=== PATIENT | male | born 1965 | race Caucasian/White ===

== ENCOUNTER 2016-09-15 10:24 | Inpatient (IN) | payer MEDICARE, MEDICAID ==
[2016-09-15 10:57] LABS: Urine Bilirubin Negative (Negative); Urine Glucose Negative (Negative); Urine Nitrite Negative (Negative)
[2016-09-15 11:10] LABS: Hematocrit 44 % (42-52); Hemoglobin 15.4 g/dl (14.0-18.0); Mean Corpuscular HGB Conc 35 g/dl (31-36); Mean Corpuscular Hemoglobin 31 pg (27-31); Mean Corpuscular Volume 89 fL (80-94); Mean Platelet Volume 8 um3 (7.4-10.4); Red Blood Count 4.99 10^6/ul (4.0-5.4); Red Cell Distribution Width 14 % (10.5-15); White Blood Count 6.1 10^3/ul (3.5-10.8)
[2016-09-15 11:20] LABS: Benzodiazepine Urine Screen None Detected (None Detect)
[2016-09-15 11:25] LABS: ALT 18 U/L (7-52); AST 20 U/L (13-39); Albumin 4.4 g/dL (3.2-5.2); Alkaline Phosphatase 79 U/L (34-104); Anion Gap 9 mmol/L (2-11); BUN/Creatinine Ratio 6.9 (8-20); Blood Urea Nitrogen 7 mg/dL (6-24); CO2 Carbon Dioxide 22 mmol/L (22-32); Calcium 9.7 mg/dL (8.6-10.3); Chloride 109 mmol/L (101-111); EGFR African American 100.6 (>60); EGFR Non-African American 78.2 (>60); Globulin 2.7 g/dL (2-4); Glucose 112 mg/dL (70-100); Potassium 3.7 mmol/L (3.5-5.0); Sodium 140 mmol/L (133-145); Total Protein 7.1 g/dL (6.4-8.9)
[2016-09-15 11:47] LABS: Acetaminophen < 15 mcg/mL; Alcohol < 10 mg/dL (<10); Salicylate < 2.50 mg/dL (<30)
[2016-09-15 11:57] LABS: TSH (Thyroid Stimulating Horm) 2.05 mcIU/mL (0.34-5.60)
[2016-09-15] MEDS ORDERED: Nicotine Inhaler* 10 MG AMP INH ONE (12:58)
[2016-09-15] MEDS ORDERED: Acetaminophen TAB* 325 MG PO PRN (14:02)
[2016-09-15] MEDS ORDERED: Mouth Piece, Nicotine* 1 EACH CARTRIDGE ONE (16:33)
[2016-09-15] MEDS: Atorvastatin* 20 MG TAB PO SCH (20:11)
[2016-09-15] MEDS: clonazePAM TAB(*) 0.5 MG PO SCH (20:12)
[2016-09-15] MEDS: CloZAPine TAB* 100 MG TAB PO SCH (20:12)
[2016-09-15] MEDS: Nicotine Inhaler* 10 MG AMP INH PRN (20:14)
[2016-09-16] MEDS: Tamsulosin CAP* 0.4 MG PO SCH (08:53)
[2016-09-16] MEDS: CloZAPine TAB* 100 MG TAB PO SCH ×2 (08:53→20:01)
[2016-09-16] MEDS: Multivitamins/Minerals TAB PO SCH (08:53)
[2016-09-16] MEDS: Propranolol LA CAP* 120 MG PO SCH (08:53)
[2016-09-16] MEDS: Aspirin EC Low Dose* 81 MG TAB.EC PO SCH (08:53)
[2016-09-16] MEDS: Nicotine Inhaler* 10 MG AMP INH PRN ×2 (12:28→20:04)
--- NOTE | 2016-09-16 13:16 | PN ---
MHU: Group Therapy Note - Service Type Service Type: [id number] Group Psychotherapy - Cognitive Behavioral Group Therapy ( CBT):Patient attended CBT programming this morning and presented with flat affect that did not vary with discussion. Although responsive to direct prompts to respond to questions, patient did not engage in spontaneous conversation.
--- NOTE | 2016-09-16 14:23 | HP ---
H&P (Free Text) History and Physical: DATE OF ADMISSION: 09/15/16. DATE OF EVALUATION: 09/16/16. IDENTIFICATION: Mr. Bliss is known to the unit from about seven prior admissions here in the past 9 months. He is being readmitted under very similar circumstances to prior admissions, with report of paranoid ideation that his neighbors are plotting to harm him, this time with the new theme of witchcraft involved. Also has voices telling him to harm himself. He has been re-admitted 2-3 weeks following discharge from [facility] into an apartment at [facility]. HISTORY OF PRESENT ILLNESS: Information was gathered from interview of the patient and review of the electronic medical record. Escobar reports resumption of the paranoid ideation with voices telling him to kill himself. At [facility] yesterday, he reported SI to slit his wrists. He reports compliance with clozapine 100 mg po qAM and 250 mg po qHS. He nevertheless has had resumption of these auditory hallucinations which have plagued him for many months across multiple state hospitalizations. He feels he would be safer if he could live in a senior care. Haresh denies any history of mack. He does endorse some depressive symptoms, but this in the context of his ongoing paranoia and auditory hallucinations. He denies any history of OCD symptoms. He denies any visual hallucinations. He denies any history of trauma leading to PTSD symptoms. He is generally organized in his thought process aside from these overwhelming paranoid auditory hallucinations commanding him to harm himself. MENTAL STATUS EXAMINATION: Haresh is more disheveled and has a more distant feel to him on this admission compared with his last her in June. He has average hygiene, but is notably disheveled. He makes fair eye contact. His speech has regular rate, rhythm and volume. He shows some mild slowing of thought process. He is alert and oriented to person, place, time and situation. He reports his mood as "not so good." His affect is anxious. He is pacing the curry as he speaks with me. He reports command auditory hallucinations to harm himself. He denies any visual hallucinations. He reports suicidal ideation to cut himself, but denies any intent toward that plan at this point and feels safe here on the unit. He denies any homicidal ideation. He is not on this admission paranoid that his neighbors would steal his things, stating he has insurance to cover any losses now. PAST PSYCHIATRIC HISTORY: This is Haresh's 17th hospitalization on this BSU. It is his seventh since January of last year. He was hospitalized again prior to this admission at the [facility]. He has been continuing care at [facility]. He has reported that his first psychiatric admission was to a hospital in [place], [place] in 1995 after his only suicide attempt, which was by cutting his wrist. He reports a historical diagnosis of schizophrenia. He has in the past been on Saphris and Fluphenazine, also Zyprexa 20 mg in the morning and 10 mg at bedtime. Clozaril was started at the [facility] and he continues on that now. PAST MEDICAL HISTORY: Recovered through weight loss from non-insulin dependent diabetes about four years ago. Has high cholesterol and hypertension. Denies any history of TBI, seizures, syncopal episodes or cardiac problems. PAST SURGICAL HISTORY: Denies any surgical history. MEDICATIONS ON ADMISSION: 1. Clozapine 100 mg po qAM, 250 mg po qHS. 2. Propranolol extended release 120 mg daily. 3. Clonazepam 0.5 mg at bedtime as needed. 4. Tamsulosin 0.4 mg daily. 5. Atorvastatin 20 mg at bedtime. 6. Aspirin 81 mg po daily PHARMACY: [facility]. Medication list obtained by reconciliation with the pharmacy. FAMILY PSYCHIATRIC HISTORY: Cousin with bipolar affective disorder. Knows of no attempted or completed suicides amongst family members or acquaintances. 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 Denies any abuse of alcohol or illicit's since about 25 years ago. He reports that when a friend that he used to abuse substances with moved away, he stopped abusing substances. He denies any abuse of caffeine. Denies any abuse of IV drugs, arpm-tkx-lunbcul drugs, or prescription drugs. He has in the past used vaporized nicotine, but is not a smoker. SOCIAL HISTORY: Grew up in [place]. Did okay in school. Graduated from [employer] with accountancy classes. 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 Has one sister, very little contact with her as she is busy raising her family. Most recently had been living by himself in an apartment at [facility]. LEGAL HISTORY: Drug charges dismissed with ACD's in the past, no other legal history. REVIEW OF SYSTEMS: Denies any chest pain, shortness of breath, nausea, vomiting , constipation, diarrhea, pain, rash, unusual sensations. PHYSICAL EXAMINATION Physical examination was performed in the emergency department according to Haresh, but I find no record in the EMR of his physical exam done there. Patient was re-examined in presence of hospital account manager, Yeny. General: Well appearing, well nourished, in no distress. Ambulating without difficulty. Skin: Good turgor, no rash, unusual bruising or prominent lesions HEENT: Head: Normocephalic, atraumatic, no visible or palpable masses, depressions, or scaring. Eyes: Visual acuity intact, conjunctiva clear, sclera non-icteric, EOM intact, PERRL Ears: hearing intact. Mouth: Mucous membranes moist, no mucosal lesions. Neck: Supple, without lesions, bruits, or adenopathy, thyroid non-enlarged and non-tender Heart: Regular rate and rhythm, no murmur or gallop Lungs: Clear to auscultation and percussion Abdomen: Bowel sounds normal, no tenderness, organomegaly, masses, or hernia Rectal: deferred Extremities: No amputations or deformities, cyanosis, edema or varicosities, peripheral pulses intact Musculoskeletal: Normal gait and station. No misalignment, asymmetry, defects, or abnormal strength or tone in the head, neck, or extremities. Neurologic: CN 2-12 normal. Sensation to touch normal. DTRs normal in lower extremities. G/U: deferred LABORATORY DATA: CBC with differential essentially within normal limits. Comprehensive metabolic panel had an elevation of total bilirubin to 1.9 ( identical to that of his last admission), and glucose high to 112, otherwise all normal. Urinalysis and urine and serum toxicology screens all negative. ASSESSMENT AND PLAN: This is Haresh's seventh hospitalization on this unit since January of last year. He is again decompensated and admitted shortly after a stay at the [facility]. He has continued to have auditory hallucinations and paranoia with command auditory hallucinations telling him to kill himself. There has been little change of these symptoms across multiple medication trials. Decompensations have occurred invariably whenever he has been alone after discharge, even after arrangements have been made to put him into living situations where he would have roommates and presumably some more contacts to reduce the likelihood of these symptoms recurring. He will perhaps need to be transferred back to the [facility] hospital unless we can find some disposition that will help to reduce the likelihood of recurrence of this very persistent psychotic and suicidal symptomatology leading to multiple hospitalizations in the past nine months. We will continue Clozaril. He will be encouraged to make use of the therapeutic milieu and groups. We will be monitoring his mental status and safety. We will be gathering collateral from his outpatient providers and from [facility] staff. DIAGNOSIS: Schizophrenia. [id number]/[facility] #: [id number]
[2016-09-16] MEDS: clonazePAM TAB(*) 0.5 MG PO SCH (20:02)
[2016-09-16] MEDS: Atorvastatin* 20 MG TAB PO SCH (20:03)
[2016-09-17] MEDS: Aspirin EC Low Dose* 81 MG TAB.EC PO SCH (08:10)
[2016-09-17] MEDS: CloZAPine TAB* 100 MG TAB PO SCH ×2 (08:10→20:31)
[2016-09-17] MEDS: Propranolol LA CAP* 120 MG PO SCH (08:10)
[2016-09-17] MEDS: Multivitamins/Minerals TAB PO SCH (08:10)
[2016-09-17] MEDS: Tamsulosin CAP* 0.4 MG PO SCH (08:10)
[2016-09-17] MEDS: Nicotine Inhaler* 10 MG AMP INH PRN ×2 (08:12→14:05)
[2016-09-17] MEDS: Atorvastatin* 20 MG TAB PO SCH (20:31)
[2016-09-17] MEDS: clonazePAM TAB(*) 0.5 MG PO SCH (20:31)
[2016-09-18] MEDS: Aspirin EC Low Dose* 81 MG TAB.EC PO SCH (08:22)
[2016-09-18] MEDS: Tamsulosin CAP* 0.4 MG PO SCH (08:22)
[2016-09-18] MEDS: CloZAPine TAB* 100 MG TAB PO SCH ×2 (08:22→20:35)
[2016-09-18] MEDS: Multivitamins/Minerals TAB PO SCH (08:23)
[2016-09-18] MEDS: Propranolol LA CAP* 120 MG PO SCH (08:23)
[2016-09-18] MEDS: Nicotine Inhaler* 10 MG AMP INH PRN ×3 (08:24→18:02)
--- NOTE | 2016-09-18 15:07 | PN ---
Subjective - Subjective Subjective: Escobar is seclusive to his room, he c/o difficulty staying asleep and daytime tiredness. He describes mild improvement in AH "as long as he is able to relax and stay in the moment." He is receptive to support and advice to stay out of bed during the day. Objective - Appearance Appearance: Well Developed/Nourished Dysmorphic Features: No Hygiene: Mal-odorous Grooming: Disheveled - Behavior Psychomotor Activities: Normal Exhibits Abnormal Movement: Yes - Attitude and Relatedness Attitude and Relatedness: Cooperative Eye Contact: Good - Speech Quality: Unpressured Latencies: Normal Quantity: Terse - Mood Patient's Decription of Mood: "Anxious" - Affect Observed Affect: Unvariable Affect Consistent with: Dysphoria - Thought Process Patient's Thought Process: Impoverished Thought Content: Yes Paranoid Ideation, No Passive Wish, No Suicidal Planning, No Homicidal Ideation - Sensorium Experiencing Hallucinations: No, Sensorium is Clear - Level of Consciousness Level of Consciousness: Alert Orientation: Yes Intact - Impulse Control Impulse Control: Intact - Insight and Judgement Insight and Judgement: Impaired - Group Participation Particating in Group Activities: No - Medication Management Medication Management Adherence: Yes Assessment - Assessment Merits Inpatient Hospitalization: Consolidate Improvements, For Discharge Planning Inpatient DSM-IV Dx: Schizophrenia Clinical Impression: ongoing impairing psychotic symptoms. He needs continued admission for stabilization. Plan - Plan Treatment Plan: Name: AURORA ASH Birthdate: 1965 [id number] Continued Medication Management: Continue Outpt Medication Medications: Current Medications Acetaminophen (Tylenol Tab*) 650 mg PO Q4H PRN PRN Reason: PAIN or TEMP > 101 F Al Hydrox/Mg Hydrox/Simethicone (Maalox Plus*) 30 ml PO Q4H PRN PRN Reason: INDIGESTION Aspirin (Aspirin Ec Low Dose*) 81 mg PO DAILY [facility] Last Admin: 09/18/16 08:22 Dose: 81 mg Atorvastatin Calcium (Lipitor*) 20 mg PO BEDTIME [facility] Last Admin: 09/17/16 20:31 Dose: 20 mg Clonazepam (Klonopin Tab(*)) 0.5 mg PO BEDTIME [facility] Last Admin: 09/17/16 20:31 Dose: 0.5 mg Clozapine (Clozapine Tab*) 100 mg PO QAM [facility] Last Admin: 09/18/16 08:22 Dose: 100 mg Clozapine (Clozapine Tab*) 250 mg PO BEDTIME [facility] Last Admin: 09/17/16 20:31 Dose: 250 mg Multivitamins/Minerals (Theragran/Minerals Tab*) 1 tab PO DAILY [facility] Last Admin: 09/18/16 08:23 Dose: 1 tab Nicotine (Nicotine Inhaler*) 10 mg INH Q2H PRN PRN Reason: CRAVING Last Admin: 09/18/16 08:24 Dose: 10 mg Propranolol HCl (Inderal La Cap*) 120 mg PO DAILY [facility] Last Admin: 09/18/16 08:23 Dose: 120 mg Tamsulosin HCl (Flomax Cap*) 0.4 mg PO DAILY [facility] Last Admin: 09/18/16 08:22 Dose: 0.4 mg - Discharge Plan Discharge Plan: Consider Longer Term Tx Outpatient Program: TBD
[2016-09-18] MEDS: Atorvastatin* 20 MG TAB PO SCH (20:35)
[2016-09-18] MEDS: clonazePAM TAB(*) 0.5 MG PO SCH (20:36)
[2016-09-19] MEDS: Multivitamins/Minerals TAB PO SCH (08:52)
[2016-09-19] MEDS: Nicotine Inhaler* 10 MG AMP INH PRN ×3 (08:52→20:14)
[2016-09-19] MEDS: Tamsulosin CAP* 0.4 MG PO SCH (08:52)
[2016-09-19] MEDS: CloZAPine TAB* 100 MG TAB PO SCH ×2 (08:53→20:12)
[2016-09-19] MEDS: Aspirin EC Low Dose* 81 MG TAB.EC PO SCH (08:53)
[2016-09-19] MEDS: Propranolol LA CAP* 120 MG PO SCH (09:05)
--- NOTE | 2016-09-19 09:27 | PN ---
Subjective - Subjective Service Type: 52722 Hosp care 15 min low complexity Subjective: Escobar reports continued CAH to kill himself and is equivocal about any SI aside from CAH. Objective - Appearance Appearance: Healthy Appearing Dysmorphic Features: No Hygiene: Normal Grooming: Well Kept - Behavior Psychomotor Activities: Normal Exhibits Abnormal Movement: No - Attitude and Relatedness Attitude and Relatedness: Cooperative Eye Contact: Fair - Speech Quality: Unpressured Latencies: Normal Quantity: Appropriate - Mood Patient's Decription of Mood: "It's alright" - Affect Observed Affect: Depressed Affect Consistent with: Dysphoria - Thought Process Patient's Thought Process: Coherent, Goal Directed Thought Content: Yes Passive Wish, Yes Paranoid Ideation, No Suicidal Planning, No Homicidal Ideation - Sensorium Experiencing Hallucinations: Yes Type of Hallucinations: Visual: No, Auditory: Yes, Command: Yes - Level of Consciousness Level of Consciousness: Alert Orientation: Yes Intact, Yes Orientated to Time, Yes Orientated to Place, Yes Orientated to Person - Impulse Control Impulse Control: Intact - Insight and Judgement Insight and Judgement: Fair - Group Participation Particating in Group Activities: Yes - Medication Management Medication Management Adherence: Yes Assessment - Assessment Merits Inpatient Hospitalization: For Immediate Safety, For Stabilization, For Discharge Planning, Pending Safe DC Plan Inpatient DSM-IV Dx: Schizophrenia Clinical Impression: Escobar continues to have CAH to SI, which is what prompted readmission for his 7th admission in 9 months to this BSU. As before, he decompensated quickly after discharge from the [facility]. As before, we will be trying to help him to stabilize in the community by referral to prison. Plan - Plan Treatment Plan: Name: AURORA ASH Birthdate: 1965 [id number] Continue current meds. Monitor MS and safety. Encourage groups and milieu. [place] domiciling would be prison to break CAH by frequent interpersonal interactions. Medications: Current Medications Acetaminophen (Tylenol Tab*) 650 mg PO Q4H PRN PRN Reason: PAIN or TEMP > 101 F Al Hydrox/Mg Hydrox/Simethicone (Maalox Plus*) 30 ml PO Q4H PRN PRN Reason: INDIGESTION Aspirin (Aspirin Ec Low Dose*) 81 mg PO DAILY [facility] Last Admin: 09/19/16 08:53 Dose: 81 mg Atorvastatin Calcium (Lipitor*) 20 mg PO BEDTIME [facility] Last Admin: 09/18/16 20:35 Dose: 20 mg Clonazepam (Klonopin Tab(*)) 0.5 mg PO BEDTIME [facility] Last Admin: 09/18/16 20:36 Dose: 0.5 mg Clozapine (Clozapine Tab*) 100 mg PO QAM [facility] Last Admin: 09/19/16 08:53 Dose: 100 mg Clozapine (Clozapine Tab*) 250 mg PO BEDTIME [facility] Last Admin: 09/18/16 20:35 Dose: 250 mg Multivitamins/Minerals (Theragran/Minerals Tab*) 1 tab PO DAILY [facility] Last Admin: 09/19/16 08:52 Dose: 1 tab Nicotine (Nicotine Inhaler*) 10 mg INH Q2H PRN PRN Reason: CRAVING Last Admin: 09/19/16 08:52 Dose: 10 mg Propranolol HCl (Inderal La Cap*) 120 mg PO DAILY [facility] Last Admin: 09/19/16 09:05 Dose: 120 mg Tamsulosin HCl (Flomax Cap*) 0.4 mg PO DAILY [facility] Last Admin: 09/19/16 08:52 Dose: 0.4 mg - Discharge Plan Discharge Plan: Consider Longer Term Tx
--- NOTE | 2016-09-19 13:56 | PN ---
MHU: Group Therapy Note - Service Type Service Type: [id number] Group Psychotherapy - Cognitive Behavioral Group Therapy ( CBT):Patient attended CBT programming this morning and presented with flat affect that did not vary with discussion. Although responsive to direct prompts to respond to questions, patient did not engage in spontaneous conversation.
[2016-09-19] MEDS: Atorvastatin* 20 MG TAB PO SCH (20:12)
[2016-09-19] MEDS: clonazePAM TAB(*) 0.5 MG PO SCH (20:12)
[2016-09-20] MEDS: Aspirin EC Low Dose* 81 MG TAB.EC PO SCH (08:30)
[2016-09-20] MEDS: Propranolol LA CAP* 120 MG PO SCH (08:30)
[2016-09-20] MEDS: Tamsulosin CAP* 0.4 MG PO SCH (08:30)
[2016-09-20] MEDS: CloZAPine TAB* 100 MG TAB PO SCH ×2 (08:30→20:54)
[2016-09-20] MEDS: Multivitamins/Minerals TAB PO SCH (08:30)
[2016-09-20] MEDS: Nicotine Inhaler* 10 MG AMP INH PRN ×3 (08:32→20:56)
--- NOTE | 2016-09-20 12:43 | PN ---
Subjective - Subjective Service Type: [id number] Hosp care 15 min low complexity Subjective: Escobar reports being in a good mood despite continued CAH to harm himself. He reports continued PI that others can hear his thoughts. Objective - Appearance Appearance: Healthy Appearing Dysmorphic Features: No Hygiene: Normal Grooming: Disheveled - Behavior Psychomotor Activities: Normal Exhibits Abnormal Movement: No - Attitude and Relatedness Attitude and Relatedness: Cooperative Eye Contact: Good - Speech Quality: Unpressured Latencies: Normal Quantity: Appropriate - Mood Patient's Decription of Mood: "Good" - Affect Observed Affect: Constricted - Thought Process Patient's Thought Process: Coherent, Goal Directed Thought Content: Yes Paranoid Ideation, No Passive Wish, No Suicidal Planning, No Homicidal Ideation - Sensorium Experiencing Hallucinations: Yes Type of Hallucinations: Visual: No, Auditory: Yes, Command: Yes - Level of Consciousness Level of Consciousness: Alert Orientation: Yes Intact, Yes Orientated to Time, Yes Orientated to Place, Yes Orientated to Person - Impulse Control Impulse Control: Intact - Insight and Judgement Insight and Judgement: Fair - Group Participation Particating in Group Activities: Yes - Medication Management Medication Management Adherence: Yes Assessment - Assessment Merits Inpatient Hospitalization: For Immediate Safety, For Stabilization, For Discharge Planning, Pending Safe DC Plan Inpatient DSM-IV Dx: Schizophrenia Clinical Impression: Escobar continues to have CAH to SI, which is what prompted readmission for his 7th admission in 9 months to this BSU. As before, he decompensated quickly after discharge from the [facility]. As before, we will be trying to help him to stabilize in the community by referral to residential. 09.20.16 Escobar remains psychotic with CAH to harm himself and PI that his mind is being read. He is otherwise pleasant and collaborative beneath an anxious demeanor. Plan - Plan Treatment Plan: Name: AURORA ASH Birthdate: 1965 [id number] Continue current meds. Check cloz/norcloz levels. Monitor MS and safety. Encourage groups and milieu. [place] domiciling would be residential to break CAH by frequent interpersonal interactions. Continued Medication Management: Continue Outpt Medication Medications: Current Medications Acetaminophen (Tylenol Tab*) 650 mg PO Q4H PRN PRN Reason: PAIN or TEMP > 101 F Al Hydrox/Mg Hydrox/Simethicone (Maalox Plus*) 30 ml PO Q4H PRN PRN Reason: INDIGESTION Aspirin (Aspirin Ec Low Dose*) 81 mg PO DAILY [facility] Last Admin: 09/20/16 08:30 Dose: 81 mg Atorvastatin Calcium (Lipitor*) 20 mg PO BEDTIME [facility] Last Admin: 09/19/16 20:12 Dose: 20 mg Clonazepam (Klonopin Tab(*)) 0.5 mg PO BEDTIME [facility] Last Admin: 09/19/16 20:12 Dose: 0.5 mg Clozapine (Clozapine Tab*) 100 mg PO QAM [facility] Last Admin: 09/20/16 08:30 Dose: 100 mg Clozapine (Clozapine Tab*) 250 mg PO BEDTIME [facility] Last Admin: 09/19/16 20:12 Dose: 250 mg Multivitamins/Minerals (Theragran/Minerals Tab*) 1 tab PO DAILY [facility] Last Admin: 09/20/16 08:30 Dose: 1 tab Nicotine (Nicotine Inhaler*) 10 mg INH Q2H PRN PRN Reason: CRAVING Last Admin: 09/20/16 08:32 Dose: 10 mg Propranolol HCl (Inderal La Cap*) 120 mg PO DAILY [facility] Last Admin: 09/20/16 08:30 Dose: 120 mg Tamsulosin HCl (Flomax Cap*) 0.4 mg PO DAILY [facility] Last Admin: 09/20/16 08:30 Dose: 0.4 mg - Discharge Plan Discharge Plan: Outpatient Follow Up Outpatient Program: Iasiah Pratt [facility]
[2016-09-20] MEDS: clonazePAM TAB(*) 0.5 MG PO SCH (20:54)
[2016-09-20] MEDS: Atorvastatin* 20 MG TAB PO SCH (20:55)
[2016-09-21] MEDS: Propranolol LA CAP* 120 MG PO SCH (08:32)
[2016-09-21] MEDS: Multivitamins/Minerals TAB PO SCH (08:33)
[2016-09-21] MEDS: Aspirin EC Low Dose* 81 MG TAB.EC PO SCH (08:33)
[2016-09-21] MEDS: Tamsulosin CAP* 0.4 MG PO SCH (08:33)
[2016-09-21] MEDS: CloZAPine TAB* 100 MG TAB PO SCH ×2 (08:33→20:14)
[2016-09-21] MEDS: Nicotine Inhaler* 10 MG AMP INH PRN ×4 (08:35→20:14)
--- NOTE | 2016-09-21 08:50 | PN ---
Subjective - Subjective Service Type: 14619 Hosp care 15 min low complexity Subjective: Escobar reports continued CAH to harm himself, but no SI independent of CAH since yesterday. He still feels his safest discharge plan would be to skilled nursing domiciling to curb his paranoia and CAH with frequent interactions with others. Objective - Appearance Appearance: Well Developed/Nourished Dysmorphic Features: No Hygiene: Normal Grooming: Disheveled - Behavior Psychomotor Activities: Normal Exhibits Abnormal Movement: No - Attitude and Relatedness Attitude and Relatedness: Well Related Eye Contact: Good - Speech Quality: Unpressured Latencies: Normal Quantity: Terse - Mood Patient's Decription of Mood: "Fine" - Affect Observed Affect: Fair Affect Consistent with: Euthymia - Thought Process Patient's Thought Process: Coherent, Goal Directed Thought Content: Yes Paranoid Ideation, No Passive Wish, No Suicidal Planning, No Homicidal Ideation - Sensorium Experiencing Hallucinations: No, Sensorium is Clear Type of Hallucinations: Visual: No, Auditory: Yes, Command: Yes - Level of Consciousness Level of Consciousness: Alert Orientation: Yes Intact, Yes Orientated to Time, Yes Orientated to Place, Yes Orientated to Person - Impulse Control Impulse Control: Intact - Insight and Judgement Insight and Judgement: Poor - Group Participation Particating in Group Activities: Yes - Medication Management Medication Management Adherence: Yes Assessment - Assessment Merits Inpatient Hospitalization: For Immediate Safety, For Stabilization, For Discharge Planning, Pending Safe DC Plan Inpatient DSM-IV Dx: Schizophrenia Clinical Impression: Escobar continues to have CAH to SI, which is what prompted readmission for his 7th admission in 9 months to this BSU. As before, he decompensated quickly after discharge from the [facility]. As before, we will be trying to help him to stabilize in the community by referral to skilled nursing. 1..17 Escobar remains psychotic with CAH to harm himself and PI that his mind is being read. He is otherwise pleasant and collaborative beneath an anxious demeanor. 09.21.17 CAH to SI persists, so increase Clozaril dose against this. Still looking toward group living situation. Plan - Plan Treatment Plan: Name: AURORA ASH Birthdate: 1965 [id number] Continue current meds with 50 mg increase of Clozaril to 400 mg total daily dose as 100 am, 300 hs. Monitor MS and safety. Encourage groups and milieu. [place] domiciling would be skilled nursing to break CAH by frequent interpersonal interactions. Continued Medication Management: Continue Outpt Medication Medications: Current Medications Acetaminophen (Tylenol Tab*) 650 mg PO Q4H PRN PRN Reason: PAIN or TEMP > 101 F Al Hydrox/Mg Hydrox/Simethicone (Maalox Plus*) 30 ml PO Q4H PRN PRN Reason: INDIGESTION Aspirin (Aspirin Ec Low Dose*) 81 mg PO DAILY [facility] Last Admin: 09/21/16 08:33 Dose: 81 mg Atorvastatin Calcium (Lipitor*) 20 mg PO BEDTIME [facility] Last Admin: 09/20/16 20:55 Dose: 20 mg Clonazepam (Klonopin Tab(*)) 0.5 mg PO BEDTIME [facility] Last Admin: 09/20/16 20:54 Dose: 0.5 mg Clozapine (Clozapine Tab*) 100 mg PO QAM [facility] Last Admin: 09/21/16 08:33 Dose: 100 mg Clozapine (Clozapine Tab*) 250 mg PO BEDTIME [facility] Last Admin: 09/20/16 20:54 Dose: 250 mg Multivitamins/Minerals (Theragran/Minerals Tab*) 1 tab PO DAILY [facility] Last Admin: 09/21/16 08:33 Dose: 1 tab Nicotine (Nicotine Inhaler*) 10 mg INH Q2H PRN PRN Reason: CRAVING Last Admin: 09/21/16 08:35 Dose: 10 mg Propranolol HCl (Inderal La Cap*) 120 mg PO DAILY [facility] Last Admin: 09/21/16 08:32 Dose: 120 mg Tamsulosin HCl (Flomax Cap*) 0.4 mg PO DAILY [facility] Last Admin: 09/21/16 08:33 Dose: 0.4 mg - Discharge Plan Discharge Plan: Outpatient Follow Up Outpatient Program: Isaiah Pratt [facility]
[2016-09-21] MEDS ORDERED: Mouth Piece, Nicotine* 1 EACH CARTRIDGE ONE (09:41)
--- NOTE | 2016-09-21 11:33 | PN ---
MHU: Group Therapy Note - Service Type Service Type: [id number] Group Psychotherapy - Cognitive Behavioral Group Therapy ( CBT):Patient attended CBT programming this morning and presented with flat affect that did not vary with discussion. Although responsive to direct prompts to respond to questions, patient did not engage in spontaneous conversation.
[2016-09-21] MEDS: clonazePAM TAB(*) 0.5 MG PO SCH (20:14)
[2016-09-21] MEDS: Atorvastatin* 20 MG TAB PO SCH (20:14)
[2016-09-22] MEDS: Nicotine Inhaler* 10 MG AMP INH PRN ×3 (08:35→20:31)
[2016-09-22] MEDS: CloZAPine TAB* 100 MG TAB PO SCH ×2 (08:35→20:29)
[2016-09-22] MEDS: Aspirin EC Low Dose* 81 MG TAB.EC PO SCH (08:35)
[2016-09-22] MEDS: Multivitamins/Minerals TAB PO SCH (08:35)
[2016-09-22] MEDS: Propranolol LA CAP* 120 MG PO SCH (08:36)
[2016-09-22] MEDS: Tamsulosin CAP* 0.4 MG PO SCH (08:36)
--- NOTE | 2016-09-22 12:35 | PN ---
Subjective - Subjective Service Type: 81118 Hosp care 15 min low complexity Subjective: Escobar reports no change in psychiatric symptoms, and has no complaint of side effect from dose of Clozaril increased yesterday from 350 mg TDD to 400 mg TDD. Objective - Appearance Appearance: Well Developed/Nourished Dysmorphic Features: No Hygiene: Normal Grooming: Disheveled - Behavior Psychomotor Activities: Abnormal-Decreased - found in bed mid-day Exhibits Abnormal Movement: No - Attitude and Relatedness Attitude and Relatedness: Cooperative Eye Contact: Good - Speech Quality: Unpressured Latencies: Normal Quantity: Terse - Mood Patient's Decription of Mood: "Not so good" - Affect Observed Affect: Depressed Affect Consistent with: Dysphoria - Thought Process Patient's Thought Process: Coherent, Goal Directed Thought Content: Yes Paranoid Ideation, No Passive Wish, No Suicidal Planning, No Homicidal Ideation - Sensorium Experiencing Hallucinations: Yes Type of Hallucinations: Visual: No, Auditory: Yes, Command: Yes - Level of Consciousness Level of Consciousness: Alert Orientation: Yes Intact, Yes Orientated to Time, Yes Orientated to Place, Yes Orientated to Person - Impulse Control Impulse Control: Intact - Insight and Judgement Insight and Judgement: Poor - Group Participation Particating in Group Activities: Yes - Medication Management Medication Management Adherence: Yes Assessment - Assessment Merits Inpatient Hospitalization: For Immediate Safety, For Stabilization, For Discharge Planning, Pending Safe DC Plan Inpatient DSM-IV Dx: Schizophrenia Clinical Impression: Escobar continues to have CAH to SI, which is what prompted readmission for his 7th admission in 9 months to this BSU. As before, he decompensated quickly after discharge from the [facility]. As before, we will be trying to help him to stabilize in the community by referral to care home. 1.24.17 Escobar remains psychotic with CAH to harm himself and PI that his mind is being read. He is otherwise pleasant and collaborative beneath an anxious demeanor. 1.25.17 CAH to SI persists, so increase Clozaril dose against this. Still looking toward group living situation. 1.26.17 Tolerating increased Clozaril dose, no benefit yet. Being considered by [place] for community residence on condition of assessment for enrollment in ACT Plan - Plan Treatment Plan: Name: AURORA ASH Birthdate: 1965 [id number] Continue current meds at Clozaril to 400 mg total daily dose as 100 am, 300 hs. Monitor MS and safety. Encourage groups and milieu. [place] domiciling would be care home to break CAH by frequent interpersonal interactions. Continued Medication Management: Continue Outpt Medication Medications: Current Medications Acetaminophen (Tylenol Tab*) 650 mg PO Q4H PRN PRN Reason: PAIN or TEMP > 101 F Al Hydrox/Mg Hydrox/Simethicone (Maalox Plus*) 30 ml PO Q4H PRN PRN Reason: INDIGESTION Aspirin (Aspirin Ec Low Dose*) 81 mg PO DAILY [facility] Last Admin: 09/22/16 08:35 Dose: 81 mg Atorvastatin Calcium (Lipitor*) 20 mg PO BEDTIME AN Last Admin: 09/21/16 20:14 Dose: 20 mg Clonazepam (Klonopin Tab(*)) 0.5 mg PO BEDTIME AN Last Admin: 09/21/16 20:14 Dose: 0.5 mg Clozapine (Clozapine Tab*) 100 mg PO QAM [facility] Last Admin: 09/22/16 08:35 Dose: 100 mg Clozapine (Clozapine Tab*) 300 mg PO BEDTIME AN Last Admin: 09/21/16 20:14 Dose: 300 mg Multivitamins/Minerals (Theragran/Minerals Tab*) 1 tab PO DAILY [facility] Last Admin: 09/22/16 08:35 Dose: 1 tab Nicotine (Nicotine Inhaler*) 10 mg INH Q2H PRN PRN Reason: CRAVING Last Admin: 09/22/16 08:35 Dose: 10 mg Propranolol HCl (Inderal La Cap*) 120 mg PO DAILY [facility] Last Admin: 09/22/16 08:36 Dose: 120 mg Tamsulosin HCl (Flomax Cap*) 0.4 mg PO DAILY AN Last Admin: 09/22/16 08:36 Dose: 0.4 mg - Discharge Plan Discharge Plan: Outpatient Follow Up Outpatient Program: [facility]
[2016-09-22] MEDS: clonazePAM TAB(*) 0.5 MG PO SCH (20:29)
[2016-09-22] MEDS: Atorvastatin* 20 MG TAB PO SCH (20:29)
[2016-09-23 06:46] LABS: Clozapine 780 ng/mL (>350); Norclozapine 395 ng/mL
[2016-09-23] MEDS: Multivitamins/Minerals TAB PO SCH (09:00)
[2016-09-23] MEDS: Propranolol LA CAP* 120 MG PO SCH (09:00)
[2016-09-23] MEDS: CloZAPine TAB* 100 MG TAB PO SCH ×2 (09:00→20:25)
[2016-09-23] MEDS: Aspirin EC Low Dose* 81 MG TAB.EC PO SCH (09:00)
[2016-09-23] MEDS: Tamsulosin CAP* 0.4 MG PO SCH (09:01)
[2016-09-23] MEDS: Nicotine Inhaler* 10 MG AMP INH PRN ×4 (09:01→20:27)
--- NOTE | 2016-09-23 11:31 | PN ---
Subjective - Subjective Service Type: 69118 Hosp care 25 min moderate complexity Subjective: Escobar reports things are status quo, with no change in CAH to SI, and still no SI independent of CAH. Still having paranoia that his thoughts are being read, but no concerns re theft of his things on this admission. He has no physical complaints, no complaint of side effects of meds. Objective - Appearance Appearance: Well Developed/Nourished Dysmorphic Features: No Hygiene: Normal Grooming: Disheveled - Behavior Psychomotor Activities: Normal Exhibits Abnormal Movement: No - Attitude and Relatedness Attitude and Relatedness: Cooperative Eye Contact: Good - Speech Quality: Unpressured Latencies: Normal Quantity: Appropriate - Mood Patient's Decription of Mood: "Alright" - Affect Observed Affect: Depressed Affect Consistent with: Dysphoria - mild - Thought Process Patient's Thought Process: Coherent, Goal Directed, Impoverished - mildly Thought Content: Yes Paranoid Ideation, No Passive Wish, No Suicidal Planning, No Homicidal Ideation - Sensorium Experiencing Hallucinations: No, Sensorium is Clear Type of Hallucinations: Visual: No, Auditory: Yes, Command: Yes - Level of Consciousness Level of Consciousness: Alert Orientation: Yes Intact, Yes Orientated to Time, Yes Orientated to Place, Yes Orientated to Person - Impulse Control Impulse Control: Intact - Insight and Judgement Insight and Judgement: Fair - Group Participation Particating in Group Activities: Yes - Medication Management Medication Management Adherence: Yes Assessment - Assessment Merits Inpatient Hospitalization: For Immediate Safety, For Stabilization, For Discharge Planning, Pending Safe DC Plan Inpatient DSM-IV Dx: Schizophrenia Clinical Impression: Escobar continues to have CAH to SI, which is what prompted readmission for his 7th admission in 9 months to this [facility]. As before, he decompensated quickly after discharge from the [facility]. As before, we will be trying to help him to stabilize in the community by referral to correction. 1.17 Escobar remains psychotic with CAH to harm himself and PI that his mind is being read. He is otherwise pleasant and collaborative beneath an anxious demeanor. 1.17 CAH to SI persists, so increase Clozaril dose against this. Still looking toward group living situation. 1.17 Tolerating increased Clozaril dose, no benefit yet. Being considered by [place] for community residence on condition of assessment for enrollment in ACT 1.27.17 Clozaril level returned from trough draw morning of 1.25.17, before dose increase, gives serum levels of clozapine 780, norclozapine 395, well past the threshold giving expectation of efficacy, so indicating less likelihood of improved efficacy with increased dose. Still arranging for discharge into group living situation, which in the past has mitigated symptoms of CAH to SI and paranoia through frequent social contact. Med, meal and group compliant, with pleasant engagement with staff and peers. Plan - Plan Treatment Plan: Name: AURORA ASH Birthdate: 1965 [id number] Continue current meds at Clozaril to 400 mg total daily dose as 100 am, 300 hs. Monitor MS and safety. Encourage groups and milieu. [place] domiciling would be correction to break CAH by frequent interpersonal interactions, working toward this for next week. Continued Medication Management: Continue Outpt Medication Medications: Current Medications Acetaminophen (Tylenol Tab*) 650 mg PO Q4H PRN PRN Reason: PAIN or TEMP > 101 F Al Hydrox/Mg Hydrox/Simethicone (Maalox Plus*) 30 ml PO Q4H PRN PRN Reason: INDIGESTION Aspirin (Aspirin Ec Low Dose*) 81 mg PO DAILY [facility] Last Admin: 09/23/16 09:00 Dose: 81 mg Atorvastatin Calcium (Lipitor*) 20 mg PO BEDTIME AN Last Admin: 09/22/16 20:29 Dose: 20 mg Clonazepam (Klonopin Tab(*)) 0.5 mg PO BEDTIME AN Last Admin: 09/22/16 20:29 Dose: 0.5 mg Clozapine (Clozapine Tab*) 100 mg PO QAM AN Last Admin: 09/23/16 09:00 Dose: 100 mg Clozapine (Clozapine Tab*) 300 mg PO BEDTIME AN Last Admin: 09/22/16 20:29 Dose: 300 mg Multivitamins/Minerals (Theragran/Minerals Tab*) 1 tab PO DAILY [facility] Last Admin: 09/23/16 09:00 Dose: 1 tab Nicotine (Nicotine Inhaler*) 10 mg INH Q2H PRN PRN Reason: CRAVING Last Admin: 09/23/16 09:01 Dose: 10 mg Propranolol HCl (Inderal La Cap*) 120 mg PO DAILY [facility] Last Admin: 09/23/16 09:00 Dose: 120 mg Tamsulosin HCl (Flomax Cap*) 0.4 mg PO DAILY AN Last Admin: 09/23/16 09:01 Dose: 0.4 mg - Discharge Plan Discharge Plan: Outpatient Follow Up Outpatient Program: [facility]
[2016-09-23 12:34] LABS: Hematocrit 45 % (42-52); Hemoglobin 15.2 g/dl (14.0-18.0); Mean Corpuscular HGB Conc 34 g/dl (31-36); Mean Corpuscular Hemoglobin 30 pg (27-31); Mean Corpuscular Volume 90 fL (80-94); Mean Platelet Volume 9 um3 (7.4-10.4); Red Blood Count 4.99 10^6/ul (4.0-5.4); Red Cell Distribution Width 14 % (10.5-15); White Blood Count 7.9 10^3/ul (3.5-10.8)
[2016-09-23] MEDS: clonazePAM TAB(*) 0.5 MG PO SCH (20:24)
[2016-09-23] MEDS: Atorvastatin* 20 MG TAB PO SCH (20:24)
[2016-09-24] MEDS: Tamsulosin CAP* 0.4 MG PO SCH (08:17)
[2016-09-24] MEDS: Propranolol LA CAP* 120 MG PO SCH (08:17)
[2016-09-24] MEDS: Multivitamins/Minerals TAB PO SCH (08:17)
[2016-09-24] MEDS: Aspirin EC Low Dose* 81 MG TAB.EC PO SCH (08:17)
[2016-09-24] MEDS: CloZAPine TAB* 100 MG TAB PO SCH ×2 (08:18→19:57)
[2016-09-24] MEDS: Nicotine Inhaler* 10 MG AMP INH PRN ×3 (08:19→19:59)
[2016-09-24] MEDS: clonazePAM TAB(*) 0.5 MG PO SCH (19:57)
[2016-09-24] MEDS: Atorvastatin* 20 MG TAB PO SCH (19:58)
[2016-09-25] MEDS: CloZAPine TAB* 100 MG TAB PO SCH ×2 (08:34→19:48)
[2016-09-25] MEDS: Aspirin EC Low Dose* 81 MG TAB.EC PO SCH (08:34)
[2016-09-25] MEDS: Tamsulosin CAP* 0.4 MG PO SCH (08:34)
[2016-09-25] MEDS: Propranolol LA CAP* 120 MG PO SCH (08:34)
[2016-09-25] MEDS: Multivitamins/Minerals TAB PO SCH (08:34)
[2016-09-25] MEDS: Nicotine Inhaler* 10 MG AMP INH PRN ×5 (08:35→20:40)
--- NOTE | 2016-09-25 12:18 | ED ---
Psychiatric Complaint - HPI Summary HPI Summary: Patient presents with concerns that he is not safe in his home due to the college students who live in the apartment above him. He says they have been coming to his door, knocking and then leaving, and then also chanting upstairs that he should hurt himself. He also reports hallucinating about voices that tell him to hurt himself. He denies linus SI or HI. - History Of Current Complaint Chief Complaint: EDMentalHealth Time Seen by Provider: 09/15/16 10:33 Hx Obtained From: Patient Onset/Duration: Gradual Onset Timing: Constant Severity Initially: Severe Severity Currently: Severe Character: Fearful, Anxious Aggravating Factor(s): Nothing Alleviating Factor(s): Nothing Associated Signs And Symptoms: Positive: Hallucinating, Paranoid Behavior Related History: Positive For: Prior Psychiatric Issues - Allergies/Home Medications Allergies/Adverse Reactions: Allergies Allergy/AdvReac Type Severity Reaction Status Date / Time Ziprasidone [From [facility]] Allergy Itching Verified 09/15/16 11:17 Home Medications: Home Medications Atorvastatin* [Lipitor 20 MG*] 20 mg PO BEDTIME 09/15/16 [History Confirmed ] CloZAPine TAB* 100 mg PO QAM 09/15/16 [History Confirmed 09/15/16] CloZAPine TAB* 250 mg PO BEDTIME 09/15/16 [History Confirmed 09/15/16] Multivitamins/Minerals TAB* [Theragran/minerals TAB*] 1 tab PO DAILY 09/15/16 [ History Confirmed 09/15/16] Tamsulosin CAP* [Flomax CAP*] 0.4 mg PO DAILY 09/15/16 [History Confirmed ] PMH/Surg Hx/FS Hx/Imm Hx Cardiovascular History: Reports: Hx Hypercholesterolemia, Hx Hypertension Neurological History: Reports: Other Neuro Impairments/Disorders - RLS per patient Psychiatric History: Reports: Hx Anxiety, Hx Depression, Hx Inpatient Treatment , Hx Community Mental Health Tx, Hx Schizophrenia, Other Psychiatric Issues/ Disorders - paranoia Denies: Hx Eating Disorder, Hx of Violent Episodes Against Others Infectious Disease History: No Infectious Disease History: Denies: Traveled Outside the [place] in Last 30 Days - Family History Known Family History: Positive: Other - cousin with bipolar d/o - Social History Occupation: Unemployed Lives: Alone Alcohol Use: None Hx Substance Use: No Substance Use Type: Reports: None Hx Tobacco Use: Yes Smoking Status (MU): Former Smoker Type: Cigarettes Have You Smoked in the Last Year: Yes - reports no tobacco from cigarrettes in last six months Review of Systems Positive: Anxious, Other - paranoid All Other Systems Reviewed And Are Negative: Yes Physical Exam Triage Information Reviewed: Yes Vital Signs On Initial Exam: Initial Vitals Temp Pulse Resp BP Pulse Ox 98.2 F 78 16 137/100 97 09/15/16 10:43 09/15/16 10:43 09/15/16 10:43 09/15/16 10:43 09/15/16 10:43 Vital Signs Reviewed: Yes Appearance: Positive: Well-Appearing, No Pain Distress, Well-Nourished Skin: Positive: Warm, Skin Color Reflects Adequate Perfusion, Dry, Soft Head/Face: Positive: Normal Head/Face Inspection Eyes: Positive: EOMI, YARON, Conjunctiva Clear ENT: Positive: Hearing grossly normal Respiratory/Lung Sounds: Positive: Clear to Auscultation, Breath Sounds Present Cardiovascular: Positive: RRR Abdomen Description: Positive: Nontender, Soft Bowel Sounds: Positive: Present Musculoskeletal: Negative: Edema Left, Edema Right Neurological: Positive: Sensory/Motor Intact, NV Bundle Intact Distally Psychiatric: Positive: Anxious AVPU Assessment: Alert Diagnostics - Vital Signs Vital Signs Temp Pulse Resp BP Pulse Ox 09/15/16 14:47 97.9 F 80 16 129/82 98 09/15/16 14:02 98.3 F 81 16 134/81 09/15/16 10:43 98.2 F 78 16 137/100 97 - Laboratory Lab Results: Lab Results 09/15/16 09/15/16 09/15/16 Range/Units 10:45 10:45 11:03 WBC 6.1 (3.5-10.8) 10^3/ul RBC 4.99 (4.0-5.4) 10^6/ul Hgb 15.4 (14.0-18.0) g/dl Hct 44 (42-52) % MCV 89 (80-94) fL MCH 31 (27-31) pg MCHC 35 (31-36) g/dl RDW 14 (10.5-15) % Plt Count 205 (150-450) 10^3/ul MPV 8 (7.4-10.4) um3 Neut % (Auto) 70.1 (38-83) % Lymph % (Auto) 18.8 L (25-47) % [place] % (Auto) 6.3 (1-9) % Eos % (Auto) 3.8 (0-6) % Baso % (Auto) 1.0 (0-2) % Absolute Neuts (auto) 4.3 (1.5-7.7) 10^3/ul Absolute Lymphs (auto) 1.2 (1.0-4.8) 10^3/ul Absolute Monos (auto) 0.4 (0-0.8) 10^3/ul Absolute Eos (auto) 0.2 (0-0.6) 10^3/ul Absolute Basos (auto) 0.1 (0-0.2) 10^3/ul Absolute Nucleated RBC 0 10^3/ul Nucleated RBC % 0 Sodium (133-145) mmol/L Potassium (3.5-5.0) mmol/L Chloride (101-111) mmol/L Carbon Dioxide (22-32) mmol/L Anion Gap (2-11) mmol/L BUN (6-24) mg/dL Creatinine (0.67-1.17) mg/dL Est GFR ( Amer) (>60) Est GFR (Non-Af Amer) (>60) BUN/Creatinine Ratio (8-20) Glucose (70-100) mg/dL Calcium (8.6-10.3) mg/dL Total Bilirubin (0.2-1.0) mg/dL AST (13-39) U/L ALT (7-52) U/L Alkaline Phosphatase (34-104) U/L Total Protein (6.4-8.9) g/dL Albumin (3.2-5.2) g/dL Globulin (2-4) g/dL Albumin/Globulin Ratio (1-3) TSH (0.34-5.60) mcIU/mL Urine Color Yellow Urine Appearance Clear Urine pH 7.0 (5-9) Ur Specific [place] 1.012 (1.010-1.030) Urine Protein Negative (Negative) Urine Ketones Negative (Negative) Urine Blood Negative (Negative) Urine Nitrate Negative (Negative) Urine Bilirubin Negative (Negative) Urine Urobilinogen Negative (Negative) Ur Leukocyte Esterase Negative (Negative) Urine Glucose Negative (Negative) Salicylates (<30) mg/dL Urine Opiates Screen None detected (None Detect) Acetaminophen mcg/mL Ur Barbiturates Screen None detected (None Detect) Ur Phencyclidine Scrn None detected (None Detect) Ur Amphetamines Screen None detected (None Detect) U Benzodiazepines Scrn None detected (None Detect) Urine Cocaine Screen None detected (None Detect) U Cannabinoids Screen None detected (None Detect) Serum Alcohol (<10) mg/dL 09/15/16 Range/Units 11:03 WBC (3.5-10.8) 10^3/ul RBC (4.0-5.4) 10^6/ul Hgb (14.0-18.0) g/dl Hct (42-52) % MCV (80-94) fL MCH (27-31) pg MCHC (31-36) g/dl RDW (10.5-15) % Plt Count (150-450) 10^3/ul MPV (7.4-10.4) um3 Neut % (Auto) (38-83) % Lymph % (Auto) (25-47) % [place] % (Auto) (1-9) % Eos % (Auto) (0-6) % Baso % (Auto) (0-2) % Absolute Neuts (auto) (1.5-7.7) 10^3/ul Absolute Lymphs (auto) (1.0-4.8) 10^3/ul Absolute Monos (auto) (0-0.8) 10^3/ul Absolute Eos (auto) (0-0.6) 10^3/ul Absolute Basos (auto) (0-0.2) 10^3/ul Absolute Nucleated RBC 10^3/ul Nucleated RBC % Sodium 140 (133-145) mmol/L Potassium 3.7 (3.5-5.0) mmol/L Chloride 109 (101-111) mmol/L Carbon Dioxide 22 (22-32) mmol/L Anion Gap 9 (2-11) mmol/L BUN 7 (6-24) mg/dL Creatinine 1.01 (0.67-1.17) mg/dL Est GFR ( Amer) 100.6 (>60) Est GFR (Non-Af Amer) 78.2 (>60) BUN/Creatinine Ratio 6.9 L (8-20) Glucose 112 H (70-100) mg/dL Calcium 9.7 (8.6-10.3) mg/dL Total Bilirubin 1.90 H (0.2-1.0) mg/dL AST 20 (13-39) U/L ALT 18 (7-52) U/L Alkaline Phosphatase 79 (34-104) U/L Total Protein 7.1 (6.4-8.9) g/dL Albumin 4.4 (3.2-5.2) g/dL Globulin 2.7 (2-4) g/dL Albumin/Globulin Ratio 1.6 (1-3) TSH 2.05 (0.34-5.60) mcIU/mL Urine Color Urine Appearance Urine pH (5-9) Ur Specific [place] (1.010-1.030) Urine Protein (Negative) Urine Ketones (Negative) Urine Blood (Negative) Urine Nitrate (Negative) Urine Bilirubin (Negative) Urine Urobilinogen (Negative) Ur Leukocyte Esterase (Negative) Urine Glucose (Negative) Salicylates < 2.50 (<30) mg/dL Urine Opiates Screen (None Detect) Acetaminophen < 15 mcg/mL Ur Barbiturates Screen (None Detect) Ur Phencyclidine Scrn (None Detect) Ur Amphetamines Screen (None Detect) U Benzodiazepines Scrn (None Detect) Urine Cocaine Screen (None Detect) U Cannabinoids Screen (None Detect) Serum Alcohol < 10 (<10) mg/dL Result Diagrams: 09/23/16 11:59 09/15/16 11:03 Lab Statement: Any lab studies that have been ordered have been reviewed, and results considered in the medical decision making process. Course/Dx - Differential Dx/Clinical Impression Differential Diagnosis/HQI/PQRI: Positive: Acute Psychosis, Anxiety, Depression , Schizophrenia Provider Diagnosis: Persistent mood [affective] disorder, unspecified - Physician Notifications Patient Is Medically Stable For: Psych Evaluation Discharge - Discharge Plan Condition: Stable Disposition: ADMITTED TO [facility]
[2016-09-25] MEDS: Atorvastatin* 20 MG TAB PO SCH (19:47)
[2016-09-25] MEDS: Al Hydrox/Mg Hydrox/Simet LIQ* 30 ML UDC PO PRN (19:47)
[2016-09-25] MEDS: clonazePAM TAB(*) 0.5 MG PO SCH (19:48)
--- NOTE | 2016-09-26 08:12 | PN ---
Subjective - Subjective Service Type: 71875 Hosp care 15 min low complexity Subjective: Escobar reports "doing better.... the medicine is working" - he cites the "voices" being "less." He denies side effects, and notes feeling better. He is somewhat optimistic that supported housing will help him. Objective - Appearance Appearance: Obese Hygiene: Normal Grooming: Fairly Well Kept - Behavior Psychomotor Activities: Normal - Attitude and Relatedness Attitude and Relatedness: Cooperative Eye Contact: Good - Speech Quality: Unpressured Latencies: Normal Quantity: Terse - Mood Patient's Decription of Mood: "Anxious" - Affect Observed Affect: Non-labile Affect Consistent with: Dysphoria - mild - Thought Process Patient's Thought Process: Coherent, Impoverished Thought Content: No Passive Wish, No Suicidal Planning, No Homicidal Ideation, No Paranoid Ideation - Sensorium Experiencing Hallucinations: No, Sensorium is Clear - Level of Consciousness Level of Consciousness: Alert - Impulse Control Impulse Control: Intact - Insight and Judgement Insight and Judgement: Poor Assessment - Assessment Merits Inpatient Hospitalization: For Ongoing Evaluation, Consolidate Improvements, For Discharge Planning, Pending Safe DC Plan Inpatient DSM-IV Dx: Schizophrenia Clinical Impression: 51 y/o male with history of chronic Schizophrenia, numerous psychiatric hospitalizations, and distant history of suicidal behavior. He was admitted shortly after another release from the [facility], presenting with distress around recurrent or ongoing paranoid ideation, with threats of suicide. Stable behaviorally here. Paranoid ideation is a persistent problem but distress levels are lower. Hallucinations may be milder, and he is safe on checks, and free of active suicidal ideation. Medication mgt. is with clozapine. Subacutely Escobar is doing poorly - has higher support needs than are available in the community, but acute hospital care is more restriction than he generally needs. Plan - Plan Treatment Plan: Name: AURORA ASH Birthdate: 1965 [id number] Continued Medication Management: Continue Outpt Medication Medications: Current Medications Acetaminophen (Tylenol Tab*) 650 mg PO Q4H PRN PRN Reason: PAIN or TEMP > 101 F Al Hydrox/Mg Hydrox/Simethicone (Maalox Plus*) 30 ml PO Q4H PRN PRN Reason: INDIGESTION Last Admin: 09/25/16 19:47 Dose: 30 ml Aspirin (Aspirin Ec Low Dose*) 81 mg PO DAILY [facility] Last Admin: 09/25/16 08:34 Dose: 81 mg Atorvastatin Calcium (Lipitor*) 20 mg PO BEDTIME [facility] Last Admin: 09/25/16 19:47 Dose: 20 mg Clonazepam (Klonopin Tab(*)) 0.5 mg PO BEDTIME [facility] Last Admin: 09/25/16 19:48 Dose: 0.5 mg Clozapine (Clozapine Tab*) 100 mg PO QAM [facility] Last Admin: 09/25/16 08:34 Dose: 100 mg Clozapine (Clozapine Tab*) 300 mg PO BEDTIME [facility] Last Admin: 09/25/16 19:48 Dose: 300 mg Multivitamins/Minerals (Theragran/Minerals Tab*) 1 tab PO DAILY [facility] Last Admin: 09/25/16 08:34 Dose: 1 tab Nicotine (Nicotine Inhaler*) 10 mg INH Q2H PRN PRN Reason: CRAVING Last Admin: 09/25/16 20:40 Dose: 10 mg Propranolol HCl (Inderal La Cap*) 120 mg PO DAILY [facility] Last Admin: 09/25/16 08:34 Dose: 120 mg Tamsulosin HCl (Flomax Cap*) 0.4 mg PO DAILY [facility] Last Admin: 09/25/16 08:34 Dose: 0.4 mg - Discharge Plan Discharge Plan: Outpatient Follow Up
[2016-09-26] MEDS: CloZAPine TAB* 100 MG TAB PO SCH ×2 (08:32→20:16)
[2016-09-26] MEDS: Aspirin EC Low Dose* 81 MG TAB.EC PO SCH (08:32)
[2016-09-26] MEDS: Nicotine Inhaler* 10 MG AMP INH PRN ×4 (08:32→20:16)
[2016-09-26] MEDS: Multivitamins/Minerals TAB PO SCH (08:32)
[2016-09-26] MEDS: Propranolol LA CAP* 120 MG PO SCH (08:32)
[2016-09-26] MEDS: Tamsulosin CAP* 0.4 MG PO SCH (08:32)
--- NOTE | 2016-09-26 12:51 | PN ---
MHU: Group Therapy Note - Service Type Service Type: 71739 Group Psychotherapy - Cognitive Behavioral Group Therapy ( CBT):Patient attended CBT programming this morning and presented with flat affect that did not vary with discussion. Although responsive to direct prompts to respond to questions, patient did not engage in spontaneous conversation.
[2016-09-26] MEDS: Al Hydrox/Mg Hydrox/Simet LIQ* 30 ML UDC PO PRN (20:16)
[2016-09-26] MEDS: Atorvastatin* 20 MG TAB PO SCH (20:16)
[2016-09-26] MEDS: clonazePAM TAB(*) 0.5 MG PO SCH (20:16)
[2016-09-27] MEDS: Multivitamins/Minerals TAB PO SCH (08:24)
[2016-09-27] MEDS: CloZAPine TAB* 100 MG TAB PO SCH ×2 (08:24→20:14)
[2016-09-27] MEDS: Aspirin EC Low Dose* 81 MG TAB.EC PO SCH (08:24)
[2016-09-27] MEDS: Propranolol LA CAP* 120 MG PO SCH (08:24)
[2016-09-27] MEDS: Nicotine Inhaler* 10 MG AMP INH PRN ×4 (08:24→20:16)
[2016-09-27] MEDS: Tamsulosin CAP* 0.4 MG PO SCH (08:24)
--- NOTE | 2016-09-27 13:08 | PN ---
MHU: Group Therapy Note - Service Type Service Type: 04288 Group Psychotherapy - Cognitive Behavioral Group Therapy ( CBT):Patient attended CBT programming this morning and presented with flat affect that did not vary with discussion. Although responsive to direct prompts to respond to questions, patient did not engage in spontaneous conversation.
[2016-09-27] MEDS: Al Hydrox/Mg Hydrox/Simet LIQ* 30 ML UDC PO PRN ×2 (16:03→20:13)
[2016-09-27] MEDS: clonazePAM TAB(*) 0.5 MG PO SCH (20:14)
[2016-09-27] MEDS: Atorvastatin* 20 MG TAB PO SCH (20:14)
[2016-09-28] MEDS: Nicotine Inhaler* 10 MG AMP INH PRN ×4 (08:30→20:21)
[2016-09-28] MEDS: Multivitamins/Minerals TAB PO SCH (08:30)
[2016-09-28] MEDS: CloZAPine TAB* 100 MG TAB PO SCH ×2 (08:30→20:21)
[2016-09-28] MEDS: Aspirin EC Low Dose* 81 MG TAB.EC PO SCH (08:31)
[2016-09-28] MEDS: Propranolol LA CAP* 120 MG PO SCH (08:31)
[2016-09-28] MEDS: Tamsulosin CAP* 0.4 MG PO SCH (08:31)
--- NOTE | 2016-09-28 12:02 | PN ---
Subjective - Subjective Service Type: [id number] Hosp care 15 min low complexity Subjective: Escobar reports low current stress levels, but affirms he could never go back to his home. Denies side effects or other concerns, "voices" are not a problem at the moment. He consented/opted for voluntary Tamiflu prophylaxis after I reviewed its profile, and the info. that Infection Control recommended it be offered to patients on the unit yesterday (a peer tested +with Inf. A). Objective - Appearance Appearance: Obese Hygiene: Normal Grooming: Fairly Well Kept - Behavior Psychomotor Activities: Normal - Attitude and Relatedness Attitude and Relatedness: Guarded Eye Contact: Good - Speech Quality: Unpressured Latencies: Normal Quantity: Terse - Mood Patient's Decription of Mood: "Okay" - Affect Observed Affect: Unvariable Affect Consistent with: Dysphoria - Thought Process Patient's Thought Process: Impoverished Thought Content: No Passive Wish, No Suicidal Planning, No Homicidal Ideation, No Paranoid Ideation - Sensorium Experiencing Hallucinations: No, Sensorium is Clear - Level of Consciousness Level of Consciousness: Alert - Impulse Control Impulse Control: Intact - Insight and Judgement Insight and Judgement: Poor Assessment - Assessment Merits Inpatient Hospitalization: To Initiate Treatment, For Ongoing Evaluation , Consolidate Improvements, For Discharge Planning, Pending Safe DC Plan Inpatient DSM-IV Dx: Schizophrenia Clinical Impression: 51 y/o male with history of chronic Schizophrenia, numerous psychiatric hospitalizations, and distant history of suicidal behavior. He was admitted shortly after another release from the [facility], presenting with distress around recurrent or ongoing paranoid ideation, with threats of suicide. Stable behaviorally here. Paranoid ideation is a persistent problem but distress levels are lower. Hallucinations may be milder, and intermittent now. He is safe on checks, and free of active suicidal ideation. Medication mgt. is with clozapine, and now with Tamiflu prophylaxis. Subacutely Escobar is doing poorly - has higher support needs than are available in the community, but acute hospital care is more restriction than he generally needs. Plan - Plan Treatment Plan: Name: AURORA ASH Birthdate: 1965 [id number] Medications: Current Medications Acetaminophen (Tylenol Tab*) 650 mg PO Q4H PRN PRN Reason: PAIN or TEMP > 101 F Al Hydrox/Mg Hydrox/Simethicone (Maalox Plus*) 30 ml PO Q4H PRN PRN Reason: INDIGESTION Last Admin: 09/27/16 20:13 Dose: 30 ml Aspirin (Aspirin Ec Low Dose*) 81 mg PO DAILY [facility] Last Admin: 09/28/16 08:31 Dose: 81 mg Atorvastatin Calcium (Lipitor*) 20 mg PO BEDTIME [facility] Last Admin: 09/27/16 20:14 Dose: 20 mg Clonazepam (Klonopin Tab(*)) 0.5 mg PO BEDTIME [facility] Last Admin: 09/27/16 20:14 Dose: 0.5 mg Clozapine (Clozapine Tab*) 100 mg PO QAM [facility] Last Admin: 09/28/16 08:30 Dose: 100 mg Clozapine (Clozapine Tab*) 300 mg PO BEDTIME [facility] Last Admin: 09/27/16 20:14 Dose: 300 mg Multivitamins/Minerals (Theragran/Minerals Tab*) 1 tab PO DAILY [facility] Last Admin: 09/28/16 08:30 Dose: 1 tab Nicotine (Nicotine Inhaler*) 10 mg INH Q2H PRN PRN Reason: CRAVING Last Admin: 09/28/16 11:00 Dose: 10 mg Propranolol HCl (Inderal La Cap*) 120 mg PO DAILY [facility] Last Admin: 09/28/16 08:31 Dose: 120 mg Tamsulosin HCl (Flomax Cap*) 0.4 mg PO DAILY [facility] Last Admin: 09/28/16 08:31 Dose: 0.4 mg - Discharge Plan Discharge Plan: Outpatient Follow Up
--- NOTE | 2016-09-28 12:04 | PN ---
MHU: Group Therapy Note - Service Type Service Type: [id number] Group Psychotherapy - Cognitive Behavioral Group Therapy ( CBT):Patient attended CBT programming this morning and presented with flat affect that did not vary with discussion. Although responsive to direct prompts to respond to questions, patient did not engage in spontaneous conversation.
[2016-09-28] MEDS: Oseltamivir CAP* 75 MG PO SCH (12:24)
[2016-09-28] MEDS: clonazePAM TAB(*) 0.5 MG PO SCH (20:20)
[2016-09-28] MEDS: Atorvastatin* 20 MG TAB PO SCH (20:21)
[2016-09-29] MEDS: Propranolol LA CAP* 120 MG PO SCH (08:22)
[2016-09-29] MEDS: Oseltamivir CAP* 75 MG PO SCH (08:22)
[2016-09-29] MEDS: CloZAPine TAB* 100 MG TAB PO SCH ×2 (08:22→20:18)
[2016-09-29] MEDS: Tamsulosin CAP* 0.4 MG PO SCH (08:23)
[2016-09-29] MEDS: Multivitamins/Minerals TAB PO SCH (08:23)
[2016-09-29] MEDS: Aspirin EC Low Dose* 81 MG TAB.EC PO SCH (08:23)
[2016-09-29] MEDS: Nicotine Inhaler* 10 MG AMP INH PRN ×4 (08:24→20:19)
--- NOTE | 2016-09-29 13:47 | PN ---
MHU: Group Therapy Note - Service Type Service Type: [id number] Group Psychotherapy - Cognitive Behavioral Group Therapy ( CBT):Patient attended CBT programming this morning and presented with flat affect that did not vary with discussion. Although responsive to direct prompts to respond to questions, patient did not engage in spontaneous conversation.
[2016-09-29] MEDS: clonazePAM TAB(*) 0.5 MG PO SCH (20:18)
[2016-09-29] MEDS: Atorvastatin* 20 MG TAB PO SCH (20:18)
[2016-09-30] MEDS: Nicotine Inhaler* 10 MG AMP INH PRN ×5 (08:39→20:10)
[2016-09-30] MEDS: Oseltamivir CAP* 75 MG PO SCH (08:41)
[2016-09-30] MEDS: Aspirin EC Low Dose* 81 MG TAB.EC PO SCH (08:41)
[2016-09-30] MEDS: Propranolol LA CAP* 120 MG PO SCH (08:41)
[2016-09-30] MEDS: Tamsulosin CAP* 0.4 MG PO SCH (08:41)
[2016-09-30] MEDS: Multivitamins/Minerals TAB PO SCH (08:41)
[2016-09-30] MEDS: CloZAPine TAB* 100 MG TAB PO SCH ×2 (08:41→20:07)
[2016-09-30 09:21] LABS: Hematocrit 44 % (42-52); Hemoglobin 14.7 g/dl (14.0-18.0); Mean Corpuscular HGB Conc 33 g/dl (31-36); Mean Corpuscular Hemoglobin 30 pg (27-31); Mean Corpuscular Volume 91 fL (80-94); Mean Platelet Volume 8 um3 (7.4-10.4); Red Blood Count 4.82 10^6/ul (4.0-5.4); Red Cell Distribution Width 14 % (10.5-15); White Blood Count 7.7 10^3/ul (3.5-10.8)
--- NOTE | 2016-09-30 14:30 | PN ---
Subjective - Subjective Service Type: [id number] Hosp care 15 min low complexity Subjective: Escobar noted doing better - voices not bothering him, stress levels low, had no complaints. Objective - Appearance Appearance: Obese Hygiene: Normal Grooming: Fairly Well Kept - Behavior Psychomotor Activities: Abnormal-Decreased - Attitude and Relatedness Attitude and Relatedness: Cooperative Eye Contact: Good - Speech Quality: Unpressured Latencies: Normal Quantity: Terse - Mood Patient's Decription of Mood: "Okay" - Affect Observed Affect: Non-labile Affect Consistent with: Euthymia - Thought Process Patient's Thought Process: Impoverished Thought Content: No Passive Wish, No Suicidal Planning, No Homicidal Ideation, No Paranoid Ideation - Sensorium Experiencing Hallucinations: No, Sensorium is Clear - Level of Consciousness Level of Consciousness: Alert - Impulse Control Impulse Control: Intact - Insight and Judgement Insight and Judgement: Poor Assessment - Assessment Merits Inpatient Hospitalization: To Initiate Treatment, For Ongoing Evaluation , Consolidate Improvements, For Discharge Planning, Pending Safe DC Plan Inpatient DSM-IV Dx: Schizophrenia Clinical Impression: 51 y/o male with history of chronic Schizophrenia, numerous psychiatric hospitalizations, and distant history of suicidal behavior. He was admitted shortly after another release from the [facility], presenting with distress around recurrent or ongoing paranoid ideation, with threats of suicide. Stable behaviorally here. Paranoid ideation is a persistent problem but distress levels are lower. Hallucinations may be milder, and intermittent now. He is safe on checks, and free of active suicidal ideation. Medication mgt. is with clozapine, and now with Tamiflu prophylaxis. Subacutely Escobar is doing poorly - has higher support needs than are available in the community, but acute hospital care is more restriction than he generally needs. Plan - Plan Treatment Plan: Name: AURORA ASH Birthdate: 1965 [id number] Medications: Current Medications Acetaminophen (Tylenol Tab*) 650 mg PO Q4H PRN PRN Reason: PAIN or TEMP > 101 F Al Hydrox/Mg Hydrox/Simethicone (Maalox Plus*) 30 ml PO Q4H PRN PRN Reason: INDIGESTION Last Admin: 09/27/16 20:13 Dose: 30 ml Aspirin (Aspirin Ec Low Dose*) 81 mg PO DAILY [facility] Last Admin: 09/30/16 08:41 Dose: 81 mg Atorvastatin Calcium (Lipitor*) 20 mg PO BEDTIME [facility] Last Admin: 09/29/16 20:18 Dose: 20 mg Clonazepam (Klonopin Tab(*)) 0.5 mg PO BEDTIME [facility] Last Admin: 09/29/16 20:18 Dose: 0.5 mg Clozapine (Clozapine Tab*) 100 mg PO QAM [facility] Last Admin: 09/30/16 08:41 Dose: 100 mg Clozapine (Clozapine Tab*) 300 mg PO BEDTIME [facility] Last Admin: 09/29/16 20:18 Dose: 300 mg Multivitamins/Minerals (Theragran/Minerals Tab*) 1 tab PO DAILY [facility] Last Admin: 09/30/16 08:41 Dose: 1 tab Nicotine (Nicotine Inhaler*) 10 mg INH Q2H PRN PRN Reason: CRAVING Last Admin: 09/30/16 14:10 Dose: 10 mg Oseltamivir Phosphate (Tamiflu Cap*) 75 mg PO DAILY [facility] Stop: 10/07/16 09:01 Last Admin: 09/30/16 08:41 Dose: 75 mg Propranolol HCl (Inderal La Cap*) 120 mg PO DAILY [facility] Last Admin: 09/30/16 08:41 Dose: 120 mg Tamsulosin HCl (Flomax Cap*) 0.4 mg PO DAILY [facility] Last Admin: 09/30/16 08:41 Dose: 0.4 mg - Discharge Plan Discharge Plan: Outpatient Follow Up
[2016-09-30] MEDS: clonazePAM TAB(*) 0.5 MG PO SCH (20:08)
[2016-09-30] MEDS: Atorvastatin* 20 MG TAB PO SCH (20:08)
[2016-10-01] MEDS: CloZAPine TAB* 100 MG TAB PO SCH ×2 (08:25→20:43)
[2016-10-01] MEDS: Nicotine Inhaler* 10 MG AMP INH PRN ×4 (08:27→19:38)
[2016-10-01] MEDS: Tamsulosin CAP* 0.4 MG PO SCH (08:28)
[2016-10-01] MEDS: Multivitamins/Minerals TAB PO SCH (08:28)
[2016-10-01] MEDS: Aspirin EC Low Dose* 81 MG TAB.EC PO SCH (08:28)
[2016-10-01] MEDS: Propranolol LA CAP* 120 MG PO SCH (08:28)
[2016-10-01] MEDS: Oseltamivir CAP* 75 MG PO SCH (08:29)
[2016-10-01] MEDS: Atorvastatin* 20 MG TAB PO SCH (20:42)
[2016-10-01] MEDS: Al Hydrox/Mg Hydrox/Simet LIQ* 30 ML UDC PO PRN (20:42)
[2016-10-01] MEDS: clonazePAM TAB(*) 0.5 MG PO SCH (20:43)
[2016-10-02] MEDS: Aspirin EC Low Dose* 81 MG TAB.EC PO SCH (08:12)
[2016-10-02] MEDS: Multivitamins/Minerals TAB PO SCH (08:12)
[2016-10-02] MEDS: Tamsulosin CAP* 0.4 MG PO SCH (08:12)
[2016-10-02] MEDS: CloZAPine TAB* 100 MG TAB PO SCH ×2 (08:12→20:29)
[2016-10-02] MEDS: Nicotine Inhaler* 10 MG AMP INH PRN ×5 (08:12→20:29)
[2016-10-02] MEDS: Propranolol LA CAP* 120 MG PO SCH (10:21)
[2016-10-02] MEDS: Oseltamivir CAP* 75 MG PO SCH (10:21)
[2016-10-02] MEDS: clonazePAM TAB(*) 0.5 MG PO SCH (20:29)
[2016-10-02] MEDS: Atorvastatin* 20 MG TAB PO SCH (20:29)
[2016-10-03] MEDS: Oseltamivir CAP* 75 MG PO SCH (08:30)
[2016-10-03] MEDS: Aspirin EC Low Dose* 81 MG TAB.EC PO SCH (08:32)
[2016-10-03] MEDS: Tamsulosin CAP* 0.4 MG PO SCH (08:32)
[2016-10-03] MEDS: CloZAPine TAB* 100 MG TAB PO SCH ×2 (08:33→20:42)
[2016-10-03] MEDS: Propranolol LA CAP* 120 MG PO SCH (08:33)
[2016-10-03] MEDS: Multivitamins/Minerals TAB PO SCH (08:33)
[2016-10-03] MEDS: Nicotine Inhaler* 10 MG AMP INH PRN ×5 (08:35→20:44)
--- NOTE | 2016-10-03 10:30 | PN ---
Subjective - Subjective Service Type: [id number] Hosp care 15 min low complexity Subjective: Escobar was overtly relaxing, and denied distress. He reports ongoing hallucinations but they don't appear to be distressing. He said he can do without clonazepam. Objective - Appearance Appearance: Obese Hygiene: Normal Grooming: Well Kept - Behavior Psychomotor Activities: Abnormal-Decreased - Attitude and Relatedness Attitude and Relatedness: Cooperative Eye Contact: Good - Speech Quality: Unpressured Latencies: Normal Quantity: Terse - Mood Patient's Decription of Mood: "Okay" - Affect Observed Affect: Non-labile Affect Consistent with: Euthymia - Thought Process Patient's Thought Process: Coherent, Impoverished Thought Content: No Passive Wish, No Suicidal Planning, No Homicidal Ideation, No Paranoid Ideation - Sensorium Experiencing Hallucinations: No, Sensorium is Clear - Level of Consciousness Level of Consciousness: Alert - Impulse Control Impulse Control: Intact - Insight and Judgement Insight and Judgement: Poor Assessment - Assessment Merits Inpatient Hospitalization: For Ongoing Evaluation, Consolidate Improvements, For Discharge Planning, Pending Safe DC Plan Inpatient DSM-IV Dx: Schizophrenia Clinical Impression: 51 y/o male with history of chronic Schizophrenia, numerous psychiatric hospitalizations, and distant history of suicidal behavior. He was admitted shortly after another release from the [facility], presenting with distress around recurrent or ongoing paranoid ideation, with threats of suicide. Stable behaviorally here. Paranoid ideation is a persistent problem but distress levels are lower. Hallucinations appear to be milder, and intermittent now. He is safe on checks , and free of active suicidal ideation. Medication mgt. is with clozapine, we have provided Tamiflu prophylaxis, and will stop clonazepam (not justified if not needed). Subacutely Escobar is doing poorly - has higher support needs than are available in the community, but acute hospital care is more restriction than he generally needs. Plan - Plan Treatment Plan: Name: AURORA ASH Birthdate: 1965 [id number] Continued Medication Management: Continue Outpt Medication Medications: Current Medications Acetaminophen (Tylenol Tab*) 650 mg PO Q4H PRN PRN Reason: PAIN or TEMP > 101 F Al Hydrox/Mg Hydrox/Simethicone (Maalox Plus*) 30 ml PO Q4H PRN PRN Reason: INDIGESTION Last Admin: 10/01/16 20:42 Dose: 30 ml Aspirin (Aspirin Ec Low Dose*) 81 mg PO DAILY [facility] Last Admin: 10/03/16 08:32 Dose: 81 mg Atorvastatin Calcium (Lipitor*) 20 mg PO BEDTIME [facility] Last Admin: 10/02/16 20:29 Dose: 20 mg Clozapine (Clozapine Tab*) 100 mg PO QAM [facility] Last Admin: 10/03/16 08:33 Dose: 100 mg Clozapine (Clozapine Tab*) 300 mg PO BEDTIME [facility] Last Admin: 10/02/16 20:29 Dose: 300 mg Multivitamins/Minerals (Theragran/Minerals Tab*) 1 tab PO DAILY [facility] Last Admin: 10/03/16 08:33 Dose: 1 tab Nicotine (Nicotine Inhaler*) 10 mg INH Q2H PRN PRN Reason: CRAVING Last Admin: 10/03/16 08:35 Dose: 10 mg Oseltamivir Phosphate (Tamiflu Cap*) 75 mg PO DAILY [facility] Stop: 10/07/16 09:01 Last Admin: 10/03/16 08:30 Dose: 75 mg Propranolol HCl (Inderal La Cap*) 120 mg PO DAILY [facility] Last Admin: 10/03/16 08:33 Dose: 120 mg Tamsulosin HCl (Flomax Cap*) 0.4 mg PO DAILY [facility] Last Admin: 10/03/16 08:32 Dose: 0.4 mg - Discharge Plan Discharge Plan: Outpatient Follow Up
--- NOTE | 2016-10-03 11:44 | PN ---
MHU: Group Therapy Note - Service Type Service Type: [id number] Group Psychotherapy - Cognitive Behavioral Group Therapy ( CBT):Patient was attentive and participatory in CBT programming this morning, and remained in good behavioral control. Patient expressed positive insights regarding relevant treatment interventions and goals.
[2016-10-03] MEDS: Atorvastatin* 20 MG TAB PO SCH (20:42)
[2016-10-04] MEDS: Nicotine Inhaler* 10 MG AMP INH PRN ×5 (08:31→20:51)
[2016-10-04] MEDS: Propranolol LA CAP* 120 MG PO SCH (08:32)
[2016-10-04] MEDS: Tamsulosin CAP* 0.4 MG PO SCH (08:32)
[2016-10-04] MEDS: Aspirin EC Low Dose* 81 MG TAB.EC PO SCH (08:32)
[2016-10-04] MEDS: CloZAPine TAB* 100 MG TAB PO SCH ×2 (08:32→20:28)
[2016-10-04] MEDS: Multivitamins/Minerals TAB PO SCH (11:01)
--- NOTE | 2016-10-04 12:52 | PN ---
MHU: Group Therapy Note - Service Type Service Type: [id number] Group Psychotherapy - Cognitive Behavioral Group Therapy ( CBT):Patient was attentive and participatory in CBT programming this morning, and remained in good behavioral control. Patient expressed positive insights regarding relevant treatment interventions and goals.
[2016-10-04] MEDS: Atorvastatin* 20 MG TAB PO SCH (20:27)
[2016-10-05] MEDS: Propranolol LA CAP* 120 MG PO SCH (08:17)
[2016-10-05] MEDS: Multivitamins/Minerals TAB PO SCH (08:18)
[2016-10-05] MEDS: Aspirin EC Low Dose* 81 MG TAB.EC PO SCH (08:18)
[2016-10-05] MEDS: CloZAPine TAB* 100 MG TAB PO SCH ×2 (08:18→20:27)
[2016-10-05] MEDS: Tamsulosin CAP* 0.4 MG PO SCH (08:18)
[2016-10-05] MEDS: Nicotine Inhaler* 10 MG AMP INH PRN ×4 (08:19→19:10)
--- NOTE | 2016-10-05 11:32 | PN ---
MHU: Group Therapy Note - Service Type Service Type: [id number] Group Psychotherapy - Cognitive Behavioral Group Therapy ( CBT):Patient was attentive and participatory in CBT programming this morning, and remained in good behavioral control. Patient expressed positive insights regarding relevant treatment interventions and goals.
--- NOTE | 2016-10-05 13:52 | PN ---
Subjective - Subjective Service Type: [id number] Hosp care 15 min low complexity Subjective: Escobar reported doing better, voices are "less," he denied suicidal ideation, reported doing fine here, denied medication problems or side effects. He said he feels ready to plan to go home, guardedly hopeful he could get along okay there, with support. Objective - Appearance Appearance: Obese Hygiene: Normal Grooming: Fairly Well Kept - Behavior Psychomotor Activities: Abnormal-Decreased - Attitude and Relatedness Attitude and Relatedness: Cooperative Eye Contact: Good - Speech Quality: Unpressured Latencies: Normal Quantity: Terse - Mood Patient's Decription of Mood: "Okay" - Affect Observed Affect: Non-labile Affect Consistent with: Euthymia - Thought Process Patient's Thought Process: Impoverished Thought Content: No Passive Wish, No Suicidal Planning, No Homicidal Ideation, No Paranoid Ideation - Sensorium Experiencing Hallucinations: No, Sensorium is Clear - Level of Consciousness Level of Consciousness: Alert - Impulse Control Impulse Control: Intact - Insight and Judgement Insight and Judgement: Fair Assessment - Assessment Merits Inpatient Hospitalization: For Ongoing Evaluation, Consolidate Improvements, For Discharge Planning, Pending Safe DC Plan Inpatient DSM-IV Dx: Schizophrenia Clinical Impression: 51 y/o male with history of chronic Schizophrenia, numerous psychiatric hospitalizations, and distant history of suicidal behavior. He was admitted shortly after another release from the [facility], presenting with distress around recurrent or ongoing paranoid ideation, with threats of suicide. Stable behaviorally here. Paranoid ideation has been a persistent problem but distress levels are lower. Hallucinations are milder, and intermittent now. He is safe on checks, and free of active suicidal ideation. Medication mgt. is with clozapine, we have provided Tamiflu prophylaxis, and stopped clonazepam (not justified if not needed). Subacutely Escobar is doing poorly - has higher support needs than are available in the community, but acute hospital care is more restriction than he generally needs. Plan - Plan Treatment Plan: Name: AURORA ASH Birthdate: 1965 [id number] Continued Medication Management: Continue Outpt Medication Medications: Current Medications Acetaminophen (Tylenol Tab*) 650 mg PO Q4H PRN PRN Reason: PAIN or TEMP > 101 F Last Admin: 10/04/16 16:09 Dose: 650 mg Al Hydrox/Mg Hydrox/Simethicone (Maalox Plus*) 30 ml PO Q4H PRN PRN Reason: INDIGESTION Last Admin: 10/01/16 20:42 Dose: 30 ml Aspirin (Aspirin Ec Low Dose*) 81 mg PO DAILY [facility] BEDS AT [facility] Last Admin: 10/05/16 08:18 Dose: 81 mg Atorvastatin Calcium (Lipitor*) 20 mg PO BEDTIME [facility] 234 BEDS [facility] Last Admin: 10/04/16 20:27 Dose: 20 mg Clozapine (Clozapine Tab*) 100 mg PO QAM [facility] 234 BEDS AT [facility] Last Admin: 10/05/16 08:18 Dose: 100 mg Clozapine (Clozapine Tab*) 300 mg PO BEDTIME [facility] 234 BEDS [facility] Last Admin: 10/04/16 20:28 Dose: 300 mg Multivitamins/Minerals (Theragran/Minerals Tab*) 1 tab PO DAILY [facility] 234 BEDS [facility] Last Admin: 10/05/16 08:18 Dose: 1 tab Nicotine (Nicotine Inhaler*) 10 mg INH Q2H PRN PRN Reason: CRAVING Last Admin: 10/05/16 12:18 Dose: 10 mg Propranolol HCl (Inderal La Cap*) 120 mg PO DAILY [facility] 234 BEDS [facility] Last Admin: 10/05/16 08:17 Dose: 120 mg Tamsulosin HCl (Flomax Cap*) 0.4 mg PO DAILY [facility] 234 BEDS [facility] Last Admin: 10/05/16 08:18 Dose: 0.4 mg - Discharge Plan Discharge Plan: Outpatient Follow Up
[2016-10-05] MEDS: Atorvastatin* 20 MG TAB PO SCH (20:27)
[2016-10-06] MEDS: Tamsulosin CAP* 0.4 MG PO SCH (08:16)
[2016-10-06] MEDS: Propranolol LA CAP* 120 MG PO SCH (08:16)
[2016-10-06] MEDS: Aspirin EC Low Dose* 81 MG TAB.EC PO SCH (08:16)
[2016-10-06] MEDS: Multivitamins/Minerals TAB PO SCH (08:16)
[2016-10-06] MEDS: CloZAPine TAB* 100 MG TAB PO SCH ×2 (08:16→20:09)
[2016-10-06] MEDS: Nicotine Inhaler* 10 MG AMP INH PRN ×5 (08:17→20:41)
[2016-10-06] MEDS: Atorvastatin* 20 MG TAB PO SCH (20:09)
[2016-10-07] MEDS: Nicotine Inhaler* 10 MG AMP INH PRN ×6 (08:27→21:58)
[2016-10-07] MEDS: Multivitamins/Minerals TAB PO SCH (08:27)
[2016-10-07] MEDS: Propranolol LA CAP* 120 MG PO SCH (08:28)
[2016-10-07] MEDS: Aspirin EC Low Dose* 81 MG TAB.EC PO SCH (08:28)
[2016-10-07] MEDS: Tamsulosin CAP* 0.4 MG PO SCH (08:28)
[2016-10-07] MEDS: CloZAPine TAB* 100 MG TAB PO SCH ×2 (08:28→20:02)
[2016-10-07 11:35] LABS: Hematocrit 45 % (42-52); Hemoglobin 15.4 g/dl (14.0-18.0); Mean Corpuscular HGB Conc 34 g/dl (31-36); Mean Corpuscular Hemoglobin 31 pg (27-31); Mean Corpuscular Volume 91 fL (80-94); Mean Platelet Volume 8 um3 (7.4-10.4); Red Blood Count 4.95 10^6/ul (4.0-5.4); Red Cell Distribution Width 14 % (10.5-15); White Blood Count 9.1 10^3/ul (3.5-10.8)
--- NOTE | 2016-10-07 11:49 | PN ---
MHU: Group Therapy Note - Service Type Service Type: [id number] Group Psychotherapy - Cognitive Behavioral Group Therapy ( CBT):Patient was attentive and participatory in CBT programming this morning, and remained in good behavioral control. Patient expressed positive insights regarding relevant treatment interventions and goals.
--- NOTE | 2016-10-07 15:38 | PN ---
Subjective - Subjective Service Type: [id number] Hosp care 15 min low complexity Subjective: Escobar reports "doing okay" and said hallucinations are really not bothering him. He says he's prepared to go home, and affirmed he's safe. Objective - Appearance Appearance: Obese Hygiene: Normal Grooming: Fairly Well Kept - Behavior Psychomotor Activities: Abnormal-Decreased - Attitude and Relatedness Attitude and Relatedness: Cooperative Eye Contact: Good - Speech Quality: Unpressured Latencies: Normal Quantity: Terse - Mood Patient's Decription of Mood: "Fine" - Affect Observed Affect: Non-labile Affect Consistent with: Euthymia - Thought Process Patient's Thought Process: Impoverished Thought Content: No Passive Wish, No Suicidal Planning, No Homicidal Ideation, No Paranoid Ideation - Sensorium Experiencing Hallucinations: No, Sensorium is Clear - Level of Consciousness Level of Consciousness: Alert - Impulse Control Impulse Control: Intact - Insight and Judgement Insight and Judgement: Poor Assessment - Assessment Merits Inpatient Hospitalization: Consolidate Improvements, For Discharge Planning Inpatient DSM-IV Dx: Schizophrenia Clinical Impression: 51 y/o male with history of chronic Schizophrenia, numerous psychiatric hospitalizations, and distant history of suicidal behavior. He was admitted shortly after another release from the [facility], presenting with distress around recurrent or ongoing paranoid ideation, with threats of suicide. Stable behaviorally here. Paranoid ideation has been a persistent problem in recent months, but distress levels are low now. Hallucinations have gotten milder, and are intermittent and not bothersome now. He is safe on checks, and free of active suicidal ideation. Medication mgt. is with clozapine, we have provided Tamiflu prophylaxis, and stopped clonazepam. Subacutely Escobar is doing poorly - has higher support needs than are available in the community, but acute hospital care is more restriction than he generally needs. Plan - Plan Treatment Plan: Name: AURORA ASH Birthdate: 1965 [id number] Continued Medication Management: Continue Outpt Medication Medications: Current Medications Acetaminophen (Tylenol Tab*) 650 mg PO Q4H PRN PRN Reason: PAIN or TEMP > 101 F Last Admin: 10/04/16 16:09 Dose: 650 mg Al Hydrox/Mg Hydrox/Simethicone (Maalox Plus*) 30 ml PO Q4H PRN PRN Reason: INDIGESTION Last Admin: 10/01/16 20:42 Dose: 30 ml Aspirin (Aspirin Ec Low Dose*) 81 mg PO DAILY [facility] Last Admin: 10/07/16 08:28 Dose: 81 mg Atorvastatin Calcium (Lipitor*) 20 mg PO BEDTIME [facility] Last Admin: 10/06/16 20:09 Dose: 20 mg Clozapine (Clozapine Tab*) 100 mg PO QAM [facility] Last Admin: 10/07/16 08:28 Dose: 100 mg Clozapine (Clozapine Tab*) 300 mg PO BEDTIME [facility] Last Admin: 10/06/16 20:09 Dose: 300 mg Multivitamins/Minerals (Theragran/Minerals Tab*) 1 tab PO DAILY [facility] Last Admin: 10/07/16 08:27 Dose: 1 tab Nicotine (Nicotine Inhaler*) 10 mg INH Q2H PRN PRN Reason: CRAVING Last Admin: 10/07/16 13:53 Dose: 10 mg Propranolol HCl (Inderal La Cap*) 120 mg PO DAILY [facility] Last Admin: 10/07/16 08:28 Dose: 120 mg Tamsulosin HCl (Flomax Cap*) 0.4 mg PO DAILY [facility] Last Admin: 10/07/16 08:28 Dose: 0.4 mg - Discharge Plan Discharge Plan: Outpatient Follow Up
[2016-10-07] MEDS: Atorvastatin* 20 MG TAB PO SCH (20:02)
[2016-10-07] MEDS: Al Hydrox/Mg Hydrox/Simet LIQ* 30 ML UDC PO PRN (23:11)
[2016-10-08] MEDS: Nicotine Inhaler* 10 MG AMP INH PRN ×5 (08:17→20:02)
[2016-10-08] MEDS: Tamsulosin CAP* 0.4 MG PO SCH (08:17)
[2016-10-08] MEDS: Aspirin EC Low Dose* 81 MG TAB.EC PO SCH (08:17)
[2016-10-08] MEDS: Multivitamins/Minerals TAB PO SCH (08:17)
[2016-10-08] MEDS: CloZAPine TAB* 100 MG TAB PO SCH ×2 (08:17→20:03)
[2016-10-08] MEDS: Propranolol LA CAP* 120 MG PO SCH (08:17)
[2016-10-08] MEDS: Atorvastatin* 20 MG TAB PO SCH (20:03)
[2016-10-09] MEDS: Multivitamins/Minerals TAB PO SCH (08:18)
[2016-10-09] MEDS: Tamsulosin CAP* 0.4 MG PO SCH (08:18)
[2016-10-09] MEDS: Nicotine Inhaler* 10 MG AMP INH PRN ×5 (08:18→22:26)
[2016-10-09] MEDS: Aspirin EC Low Dose* 81 MG TAB.EC PO SCH (08:19)
[2016-10-09] MEDS: CloZAPine TAB* 100 MG TAB PO SCH ×2 (08:19→20:02)
[2016-10-09] MEDS: Propranolol LA CAP* 120 MG PO SCH (08:22)
[2016-10-09] MEDS: Atorvastatin* 20 MG TAB PO SCH (20:02)
[2016-10-09] MEDS: Al Hydrox/Mg Hydrox/Simet LIQ* 30 ML UDC PO PRN (20:04)
[2016-10-10] MEDS: Nicotine Inhaler* 10 MG AMP INH PRN ×2 (08:19→10:33)
[2016-10-10] MEDS: CloZAPine TAB* 100 MG TAB PO SCH (08:19)
[2016-10-10] MEDS: Multivitamins/Minerals TAB PO SCH (08:19)
[2016-10-10] MEDS: Tamsulosin CAP* 0.4 MG PO SCH (08:20)
[2016-10-10] MEDS: Aspirin EC Low Dose* 81 MG TAB.EC PO SCH (08:20)
--- NOTE | 2016-10-10 08:20 | DS ---
Subjective - Subjective Service Types: 69303 Hosp DC Day Mgmt simple under 30 min Discharge Date: 10/10/16 Subjective: Escobar said he's been anxious about discharge but agrees with it. Says his neighbors don't represent a threat. Denies any hallucinations today, and affirms he feels good about being alive. We reviewed his aftercare plan and medications. He denied setback or concerns. Objective - Appearance Appearance: Obese Hygiene: Normal Grooming: Fairly Well Kept - Behavior Psychomotor Activities: Normal - Attitude and Relatedness Attitude and Relatedness: Cooperative Eye Contact: Good - Speech Quality: Unpressured Latencies: Normal Quantity: Terse - Mood Patient's Decription of Mood: "Anxious" - Affect Observed Affect: Non-labile Affect Consistent with: Euthymia - Thought Process Patient's Thought Process: Coherent, Impoverished Thought Content: No Passive Wish, No Suicidal Planning, No Homicidal Ideation, No Paranoid Ideation - Sensorium Experiencing Hallucinations: No, Sensorium is Clear - Level of Consciousness Level of Consciousness: Alert - Impulse Control Impulse Control: Intact - Insight and Judgement Insight and Judgement: Poor Treatment Course & Assessment Clinical Course & Impression: 51 y/o male with history of chronic Schizophrenia, numerous psychiatric hospitalizations, and distant history of suicidal behavior. He was admitted shortly after [facility], presenting with distress around recurrent or ongoing paranoid ideation, with threats of suicide. 10/10/16 Clear for release. Escobar was stable behaviorally here. Paranoid ideation has been a persistent problem in recent months, but distress levels are low now. Hallucinations have gotten progressively milder, and are intermittent and not bothersome now. He is safe on checks, and free of active suicidal ideation. Medication mgt. is with clozapine, we provided Tamiflu prophylaxis, and stopped clonazepam. Subacutely Escobar is doing poorly - has higher support needs than are available in the community, but acute hospital care is more restriction than he generally needs. Based on recent pattern, Escobar is at ongoing risk for similar crises and admissions. Acute risk to self / other is assessed as low on basis of pt's reduced and low symptom burden, his good behavioral control and benign ideation. His condition and history are chronic risk factors for suicide and violence. Clear for Discharge: Adequate Clinical Respons, Acceptable Safety Profile, Low Utility of Inpt Care Inpatient DSM-IV Dx: Schizophrenia Discharge Planning - Discharge Planning Discharge Plan: Outpatient Follow Up Outpatient Program: ACT team Recommendations for Continuing Care: Medication Management, Psychotherapy, Routine Metabolic Monitoring Medications: Current Medications Acetaminophen (Tylenol Tab*) 650 mg PO Q4H PRN PRN Reason: PAIN or TEMP > 101 F Last Admin: 10/04/16 16:09 Dose: 650 mg Al Hydrox/Mg Hydrox/Simethicone (Maalox Plus*) 30 ml PO Q4H PRN PRN Reason: INDIGESTION Last Admin: 10/09/16 20:04 Dose: 30 ml Aspirin (Aspirin Ec Low Dose*) 81 mg PO DAILY [facility] Last Admin: 10/09/16 08:19 Dose: 81 mg Atorvastatin Calcium (Lipitor*) 20 mg PO BEDTIME [facility] Last Admin: 10/09/16 20:02 Dose: 20 mg Clozapine (Clozapine Tab*) 100 mg PO QAM [facility] Last Admin: 10/09/16 08:19 Dose: 100 mg Clozapine (Clozapine Tab*) 300 mg PO BEDTIME [facility] Last Admin: 10/09/16 20:02 Dose: 300 mg Multivitamins/Minerals (Theragran/Minerals Tab*) 1 tab PO DAILY [facility] Last Admin: 10/09/16 08:18 Dose: 1 tab Nicotine (Nicotine Inhaler*) 10 mg INH Q2H PRN PRN Reason: CRAVING Last Admin: 10/09/16 22:26 Dose: 10 mg Propranolol HCl (Inderal La Cap*) 120 mg PO DAILY [facility] Last Admin: 10/09/16 08:22 Dose: 120 mg Tamsulosin HCl (Flomax Cap*) 0.4 mg PO DAILY [facility] Last Admin: 10/09/16 08:18 Dose: 0.4 mg Discharge Planning: Prescriptions provided for discharge [x] Yes [] No Follow up care details as per social work arrangements. Patient response to discharge plan: [] eager for discharge [x] agreeable with discharge plan [] ambivalent about discharge [] disagrees with discharge today
[2016-10-10 08:23] VITALS: BP 112/81
[2016-10-10] MEDS: Propranolol LA CAP* 120 MG PO SCH (08:34)
== END 2016-10-10 11:15 | disposition home or self-care (01) | DRG 885 ==
LOC: ED 10:24 → BSU 16:03
PROVIDERS: ADMIT Psychiatry & Neurology Psychiatry; ATTEND Psychiatry & Neurology Psychiatry
PROC: GZHZZZZ Group Psychotherapy (ICD-10-PCS; principal; 2016-09-16)
PROC: GZ58ZZZ Individual Psychotherapy, Cognitive-Behavioral (ICD-10-PCS; 2016-09-16)
DX: F20.9 Schizophrenia, unspecified (principal); E11.9 Type 2 diabetes mellitus without complications; I10 Essential (primary) hypertension; Z88.8 Allergy status to other drugs, medicaments and biological substances; E78.00 Pure hypercholesterolemia, unspecified; F41.9 Anxiety disorder, unspecified; F32.9 Major depressive disorder, single episode, unspecified; Z81.8 Family history of other mental and behavioral disorders; Z87.891 Personal history of nicotine dependence; Z56.0 Unemployment, unspecified
CPT/HCPCS: 36415; 80053; 80159; 80307; 80320; 80329; 81003; 84443; 85025; 90853; 96374; 99222; 99231; 99232; 99238; 99283; A9270-GY; G0480

== ENCOUNTER 2016-11-22 12:22 | Inpatient (IN) | payer MEDICARE, MEDICAID ==
[2016-11-22] MEDS ORDERED: Pantoprazole IV* 40 MG IV ONE (13:44)
[2016-11-22] MEDS: NS 0.9% 1000 ML* 2,000 ML IV ONE ×2 (13:56→17:03)
[2016-11-22 14:04] LABS: Hematocrit 45 % (42-52); Hemoglobin 15.7 g/dl (14.0-18.0); Mean Corpuscular HGB Conc 35 g/dl (31-36); Mean Corpuscular Hemoglobin 30 pg (27-31); Mean Corpuscular Volume 88 fL (80-94); Mean Platelet Volume 9 um3 (7.4-10.4); Red Blood Count 5.15 10^6/ul (4.0-5.4); Red Cell Distribution Width 14 % (10.5-15); White Blood Count 9.3 10^3/ul (3.5-10.8)
[2016-11-22 14:39] LABS: ALT 13 U/L (7-52); AST 19 U/L (13-39); Albumin 4.7 g/dL (3.2-5.2); Alkaline Phosphatase 103 U/L (34-104); Anion Gap 17 mmol/L (2-11); BUN/Creatinine Ratio 13.2 (8-20); Blood Urea Nitrogen 17 mg/dL (6-24); C Reactive Protein 12.39 mg/L (< 5.00); CO2 Carbon Dioxide 18 mmol/L (22-32); Chloride 101 mmol/L (101-111); Creatine Kinase 99 U/L (10-223); EGFR African American 75.8 (>60); Globulin 2.6 g/dL (2-4); Glucose 107 mg/dL (70-100); Lipase < 10 U/L (11.0-82.0); Potassium 3.3 mmol/L (3.5-5.0); Sodium 136 mmol/L (133-145); Total Protein 7.3 g/dL (6.4-8.9)
[2016-11-22 15:00] LABS: Urine Bacteria Absent (Absent); Urine Bilirubin 1+ (Negative); Urine Glucose Negative (Negative); Urine Nitrite Negative (Negative)
[2016-11-22] MEDS ORDERED: Iodixanol* (CONTRAST) 320 MG/ML 100 ML SDV IV ONE (15:31)
--- NOTE | 2016-11-22 15:44 | RAD ---
HISTORY: Weakness, abdominal pain COMPARISONS: August 23, 2015 VIEWS:1: Single frontal portable view of the chest at 3:05 PM FINDINGS: LINES AND TUBES: None. CARDIOMEDIASTINAL SILHOUETTE: The cardiomediastinal silhouette is normal for portable technique. PLEURA: The costophrenic angles are sharp. No pleural abnormalities are noted. LUNG PARENCHYMA: The lungs are clear. ABDOMEN: The upper abdomen is clear. There is no subphrenic gas. BONES AND SOFT TISSUES: No bone or soft tissue abnormalities are noted. IMPRESSION: NO ACTIVE CARDIOPULMONARY DISEASE.
--- NOTE | 2016-11-22 16:02 | RAD ---
Indication: Fell and struck head November 22, 2015. Comparison: None. Technique: Noncontrast CT vertex of skull through foramen magnum. Report: The sulci, ventricles, and basal cisterns are normal for age. Douglas matter white matter differentiation is preserved without evidence for edema. No intra or extra axial hemorrhage, mass, or fluid collection detected. Unremarkable orbital contents. Unremarkable calvarium and skull base. Unremarkable scalp. The visualized paranasal sinuses and mastoid air spaces are clear. IMPRESSION: No evidence for traumatic brain injury. Negative unenhanced head CT.
--- NOTE | 2016-11-22 16:07 | RAD ---
CLINICAL HISTORY: Minimal pain, diarrhea COMPARISON: None TECHNIQUE: Multiple contiguous axial CT scans were obtained of the abdomen and pelvis after the administration of intravenous contrast. Coronal and sagittal multiplanar reformations are submitted for review. Oral contrast was administered. Delayed images were obtained through the abdomen and pelvis. FINDINGS: LUNG BASES: The lung bases are clear. LIVER: The liver is diffusely low in attenuation compared to the spleen. There are no focal hepatic parenchymal masses. BILE DUCTS: There is no intrahepatic or extrahepatic biliary dilatation. GALLBLADDER: The gallbladder is normal, without pericholecystic inflammatory change. PANCREAS: The pancreas is normal, without mass or ductal dilatation. SPLEEN: Normal in size and appearance. UPPER GI TRACT: Evaluation of the gastrointestinal tract is limited by incomplete gastric distention. The upper GI tract is unremarkable. SMALL BOWEL AND MESENTERY: The small bowel is normal in contour, course, and caliber. There is no obstruction or dilatation. COLON: There are occasional scattered diverticula of the colon ADRENALS: Normal bilaterally. KIDNEYS: The kidneys are normal in shape, size, contour, and axis. There is no hydronephrosis or nephrolithiasis. BLADDER: The bladder is smooth in contour. PELVIC ORGANS: The prostate gland is normal. The seminal vesicles are symmetric. AORTA: There is calcific atherosclerotic disease of the abdominal aorta and its branches, without aneurysmal dilatation IVC: Unremarkable LYMPH NODES: There is no lymphadenopathy by size criteria. ABDOMINAL WALL: There is no evidence for abdominal wall hernia. BONES AND SOFT TISSUES: Degenerative changes are noted OTHER: None IMPRESSION: SCATTERED DIVERTICULA OF THE COLON WITHOUT PERICOLONIC INFLAMMATORY CHANGE. NO ACUTE CT PATHOLOGY OF THE VISUALIZED ABDOMEN OR PELVIS.
--- NOTE | 2016-11-22 16:09 | RAD ---
HISTORY: Fall, head trauma COMPARISONS: None TECHNIQUE: Multiple contiguous axial CT scans were obtained of the cervical spine without intravenous contrast, with coronal and sagittal multiplanar reformations. FINDINGS: BRAIN: The visualized brain is unremarkable CENTRAL CANAL: Evaluation of the central canal is limited on CT technique; however, there is no obvious canalicular mass or epidural hemorrhage. ALIGNMENT: There is straightening of the cervical lordosis. VERTEBRAL BODIES: There is multilevel anterolateral marginal osteophyte formation. There is no displaced fracture or dislocation. JOINTS: There is osteoarthritis of the left maxillectomy dilatation and of the uncovertebral and facet joints MUSCULATURE: Unremarkable INTERVERTEBRAL DISCS: There is diffuse loss of intervertebral disc height. AXIAL IMAGES: On axial images, there is bilateral neural foraminal narrowing at C3-C4 and C5-C6. There is no osseous central canal stenosis. SOFT TISSUES: The visualized soft tissues of the neck are unremarkable. The prevertebral fat stripe is preserved. OTHER: None. IMPRESSION: DEGENERATIVE AND OSTEOARTHRITIS. NO ACUTE OSSEOUS INJURY OF THE CERVICAL SPINE.
[2016-11-22] MEDS ORDERED: Ondansetron INJ* 2 MG/ML VIAL IV PRN (17:23)
[2016-11-22] MEDS ORDERED: Acetaminophen TAB* 325 MG PO PRN (17:23)
[2016-11-22] MEDS ORDERED: Nicotine Inhaler* 10 MG AMP INH PRN (17:24)
[2016-11-22] MEDS ORDERED: Al Hydrox/Mg Hydrox/Simet LIQ* 30 ML UDC PO PRN (17:24)
--- NOTE | 2016-11-22 17:38 | ED ---
Bryan Julien Adam, scribed for Malcolm Lau MD on 11/22/16 at 1343 . GI/ HPI - HPI Summary HPI Summary: Pt is a 51 year old male presenting with constipation, diarrhea, and an episode of syncope. He reports feeling lightheaded recently and had an episode of syncope yesterday with head injury and LOC. He also reports alternating constipation and leaky watery diarrhea. His last episode of diarrhea was yesterday. He states that his stool has been black in color for the past 4 days. He also c/o abdominal pain around his umbilicus. The pt's skin is pale. He denies any fever or chills. Negative Hx of abdominal surgeries. Pt states that he has a Hx of polyps. He takes ASA. - History of Current Complaint Chief Complaint: EDGIBleed Time Seen by Provider: 11/22/16 13:37 Stated Complaint: POSSIBLE BLOOD IN STOOL , VOMITING, ABD PAIN, Hx Obtained From: Patient Onset/Duration: Started Days Ago, Atraumatic, Still Present Timing: Constant Severity: Moderate Current Severity: Moderate Pain Intensity: 2 Location of Pain: Diffuse, Umbilical Associated Signs and Symptoms: Positive: Dizziness, Syncope, Constipation, Black Tarry Stool, Diarrhea. Negative: Fever, Chills Aggravating Factor(s): Nothing Alleviating Factor(s): Nothing - Additional Pertinent History Primary Care Physician: [id number] - Allergy/Home Medications Allergies/Adverse Reactions: Allergies Allergy/AdvReac Type Severity Reaction Status Date / Time Ziprasidone [From Geodon] Allergy Itching Verified 09/15/16 11:17 PMH/Surg Hx/FS Hx/Imm Hx Cardiovascular History: Reports: Hx Hypercholesterolemia, Hx Hypertension Neurological History: Reports: Other Neuro Impairments/Disorders - RLS per patient Psychiatric History: Reports: Hx Anxiety, Hx Depression, Hx Inpatient Treatment , Hx Community Mental Health Tx, Hx Schizophrenia, Other Psychiatric Issues/ Disorders - paranoia Denies: Hx Eating Disorder, Hx of Violent Episodes Against Others Infectious Disease History: No Infectious Disease History: Denies: Traveled Outside the [place] in Last 30 Days - Family History Known Family History: Positive: Other - Cousin with bipolar d/o - Social History Occupation: Unemployed Lives: Alone Alcohol Use: None Hx Substance Use: No Substance Use Type: Reports: None Hx Tobacco Use: Yes Smoking Status (MU): Former Smoker Type: Cigarettes Have You Smoked in the Last Year: Yes - reports no tobacco from cigarrettes in last six months Review of Systems Negative: Fever, Chills Positive: Diarrhea, Other - Black stool, constipation Neurological: Other - Lightheadedness Positive: Syncope All Other Systems Reviewed And Are Negative: Yes Physical Exam Triage Information Reviewed: Yes Vital Signs On Initial Exam: Initial Vitals Temp Pulse Resp BP Pulse Ox 98.5 F 88 18 96/62 98 11/22/16 12:51 11/22/16 12:51 11/22/16 12:51 11/22/16 12:51 11/22/16 12:51 Vital Signs Reviewed: Yes Appearance: Positive: Well-Appearing, No Pain Distress Skin: Positive: Warm, Skin Color Reflects Adequate Perfusion, Dry Head/Face: Positive: Normal Head/Face Inspection Eyes: Positive: EOMI, YARON ENT: Positive: Normal ENT inspection Neck: Positive: Supple, Nontender Respiratory/Lung Sounds: Positive: Clear to Auscultation, Breath Sounds Present Cardiovascular: Positive: RRR Abdomen Description: Positive: Nontender, Soft Bowel Sounds: Positive: Present Musculoskeletal: Positive: Normal, Strength/ROM Intact Neurological: Positive: Normal, Sensory/Motor Intact, Alert, Oriented to Person Place, Time Psychiatric: Positive: Affect/Mood Appropriate Diagnostics - Vital Signs Vital Signs Temp Pulse Resp BP Pulse Ox 11/22/16 12:51 98.5 F 88 18 96/62 98 - Laboratory Lab Results: Lab Results 11/22/16 11/22/16 11/22/16 Range/Units 13:46 13:46 13:46 WBC 9.3 (3.5-10.8) 10^3/ul RBC 5.15 (4.0-5.4) 10^6/ul Hgb 15.7 (14.0-18.0) g/dl Hct 45 (42-52) % MCV 88 (80-94) fL MCH 30 (27-31) pg MCHC 35 (31-36) g/dl RDW 14 (10.5-15) % Plt Count 256 (150-450) 10^3/ul MPV 9 (7.4-10.4) um3 Neut % (Auto) 71.3 (38-83) % Lymph % (Auto) 15.4 L (25-47) % [place] % (Auto) 7.9 (1-9) % Eos % (Auto) 4.6 (0-6) % Baso % (Auto) 0.8 (0-2) % Absolute Neuts (auto) 6.7 (1.5-7.7) 10^3/ul Absolute Lymphs (auto) 1.4 (1.0-4.8) 10^3/ul Absolute Monos (auto) 0.7 (0-0.8) 10^3/ul Absolute Eos (auto) 0.4 (0-0.6) 10^3/ul Absolute Basos (auto) 0.1 (0-0.2) 10^3/ul Absolute Nucleated RBC 0 10^3/ul Nucleated RBC % 0 INR (Anticoag Therapy) 1.07 (0.89-1.11) APTT 31.2 (26.0-36.3) seconds Sodium 136 (133-145) mmol/L Potassium 3.3 L (3.5-5.0) mmol/L Chloride 101 (101-111) mmol/L Carbon Dioxide 18 L (22-32) mmol/L Anion Gap 17 H (2-11) mmol/L BUN 17 (6-24) mg/dL Creatinine 1.29 H (0.67-1.17) mg/dL Est GFR ( Amer) 75.8 (>60) Est GFR (Non-Af Amer) 59.0 (>60) BUN/Creatinine Ratio 13.2 (8-20) Glucose 107 H (70-100) mg/dL Lactic Acid (0.5-2.0) mmol/L Calcium 10.0 (8.6-10.3) mg/dL Magnesium 2.0 (1.9-2.7) mg/dL Total Bilirubin 1.30 H (0.2-1.0) mg/dL AST 19 (13-39) U/L ALT 13 (7-52) U/L Alkaline Phosphatase 103 (34-104) U/L Total Creatine Kinase 99 (10-223) U/L CK-MB (CK-2) 2.0 (0.6-6.3) ng/mL Troponin I 0.00 (<0.04) ng/mL C-Reactive Protein 12.39 H (< 5.00) mg/L Total Protein 7.3 (6.4-8.9) g/dL Albumin 4.7 (3.2-5.2) g/dL Globulin 2.6 (2-4) g/dL Albumin/Globulin Ratio 1.8 (1-3) Lipase < 10 L (11.0-82.0) U/L Urine Color Urine Appearance Urine pH (5-9) Ur Specific [place] (1.010-1.030) Urine Protein (Negative) Urine Ketones (Negative) Urine Blood (Negative) Urine Nitrate (Negative) Urine Bilirubin (Negative) Urine Urobilinogen (Negative) Ur Leukocyte Esterase (Negative) Urine WBC (Auto) (Absent) Urine RBC (Auto) (Absent) Ur Squamous Epith Cells (Absent) Urine Bacteria (Absent) Hyaline Casts (Absent) Urine Glucose (Negative) Blood Type Antibody Screen 11/22/16 11/22/16 11/22/16 Range/Units 13:46 13:46 14:06 WBC (3.5-10.8) 10^3/ul RBC (4.0-5.4) 10^6/ul Hgb (14.0-18.0) g/dl Hct (42-52) % MCV (80-94) fL MCH (27-31) pg MCHC (31-36) g/dl RDW (10.5-15) % Plt Count (150-450) 10^3/ul MPV (7.4-10.4) um3 Neut % (Auto) (38-83) % Lymph % (Auto) (25-47) % [place] % (Auto) (1-9) % Eos % (Auto) (0-6) % Baso % (Auto) (0-2) % Absolute Neuts (auto) (1.5-7.7) 10^3/ul Absolute Lymphs (auto) (1.0-4.8) 10^3/ul Absolute Monos (auto) (0-0.8) 10^3/ul Absolute Eos (auto) (0-0.6) 10^3/ul Absolute Basos (auto) (0-0.2) 10^3/ul Absolute Nucleated RBC 10^3/ul Nucleated RBC % INR (Anticoag Therapy) (0.89-1.11) APTT (26.0-36.3) seconds Sodium (133-145) mmol/L Potassium (3.5-5.0) mmol/L Chloride (101-111) mmol/L Carbon Dioxide (22-32) mmol/L Anion Gap (2-11) mmol/L BUN (6-24) mg/dL Creatinine (0.67-1.17) mg/dL Est GFR ( Amer) (>60) Est GFR (Non-Af Amer) (>60) BUN/Creatinine Ratio (8-20) Glucose (70-100) mg/dL Lactic Acid 0.9 (0.5-2.0) mmol/L Calcium (8.6-10.3) mg/dL Magnesium (1.9-2.7) mg/dL Total Bilirubin (0.2-1.0) mg/dL AST (13-39) U/L ALT (7-52) U/L Alkaline Phosphatase (34-104) U/L Total Creatine Kinase (10-223) U/L CK-MB (CK-2) (0.6-6.3) ng/mL Troponin I (<0.04) ng/mL C-Reactive Protein (< 5.00) mg/L Total Protein (6.4-8.9) g/dL Albumin (3.2-5.2) g/dL Globulin (2-4) g/dL Albumin/Globulin Ratio (1-3) Lipase (11.0-82.0) U/L Urine Color Yellow Urine Appearance Clear Urine pH 6.0 (5-9) Ur Specific [place] 1.026 (1.010-1.030) Urine Protein 1+(30 mg/dl) H (Negative) Urine Ketones 2+ H (Negative) Urine Blood Negative (Negative) Urine Nitrate Negative (Negative) Urine Bilirubin 1+ (Negative) Urine Urobilinogen Negative (Negative) Ur Leukocyte Esterase Negative (Negative) Urine WBC (Auto) Trace(0-5/hpf) (Absent) Urine RBC (Auto) Trace(0-2/hpf) (Absent) Ur Squamous Epith Cells Present H (Absent) Urine Bacteria Absent (Absent) Hyaline Casts Present H (Absent) Urine Glucose Negative (Negative) Blood Type O Positive Antibody Screen Negative Result Diagrams: 11/22/16 13:46 11/22/16 13:46 Lab Statement: Any lab studies that have been ordered have been reviewed, and results considered in the medical decision making process. - Radiology CXR Radiology Interpretation Completed By: Radiologist - IMPRESSION: NO ACTIVE CARDIOPULMONARY DISEASE - CT A/P CT Interpretation Completed By: Radiologist - IMPRESSION: SCATTERED DIVERTICULA OF THE COLON WITHOUT PERICOLONIC INFLAMMATORY CHANGE. NO ACUTE CT PATHOLOGY OF THE VISUALIZED ABDOMEN OR PELVIS. CERVICAL SPINE CT Interpretation Completed By: Radiologist - IMPRESSION: DEGENERATIVE AND OSTEOARTHRITIS. NO ACUTE OSSEOUS INJURY OF THE CERVICAL SPINE. BRAIN CT Interpretation Completed By: Radiologist - IMPRESSION: No evidence for traumatic brain injury. Negative unenhanced head CT. - EKG 13:36 Cardiac Rate: NL - 79 BPM EKG Rhythm: Sinus Rhythm - Normal Ectopy: None EKG Interpretation: Borderline T abnormalities in the inferior and lateral leads - Additional Comments Diagnostic Additional Comments: Stool occult blood - Negative GIGU Course/Dx - Course Assessment/Plan: WELL IN ED. ADMIT HOSPITALIST STABLE - Diagnoses Provider Diagnoses: Syncope, Head injury, Diarrhea, Abdominal pain, Dehydration Discharge - Discharge Plan Condition: Stable Disposition: ADMITTED TO [facility] documentation as recorded by the Byran bryant Adam accurately reflects the service I personally performed and the decisions made by me, Malcolm Lau MD.
[2016-11-22] MEDS: KCL 10 MEQ/50 ML IVPREMIX* 10 MEQ/50 ML BAG IV SCH ×2 (18:45→20:04)
[2016-11-22] MEDS: NS 0.9% w/ 40 Meq KCL 1000 ML* 1,000 ML IV SCH (18:46)
[2016-11-22] MEDS: Atorvastatin* 20 MG TAB PO SCH (20:06)
[2016-11-22] MEDS: CloZAPine TAB* 100 MG TAB PO SCH (20:10)
--- NOTE | 2016-11-22 21:39 | HP ---
HISTORY AND PHYSICAL: DATE OF ADMISSION: 11/22/16 TIME OF EVALUATION: 05.00 p.m. PRIMARY CARE PROVIDER: Dr. Panda. CHIEF COMPLAINT: "I don't feel well." HISTORY OF PRESENT ILLNESS: Mr. Bliss is a 51-year-old male with a past medical history of schizophrenia, hypertension, hyperlipidemia who presents to the emergency room with diarrhea. The patient carries a diagnosis of chronic constipation and states that he does not use any laxatives, but 3 days ago, he started to have frequent liquid diarrhea 5 to 10 episodes a day associated with mild crampy abdominal pain. He had some chills, but denies fever, nausea, or vomiting. He denies any sick contacts, but he did eat some [employer] over the weekend. He states that yesterday, he passed out and hit his head. He does complain of feeling very weak and over the past 24 to 48 hours, he was not able to eat anything and he was drinking just a little bit of fluid. PAST MEDICAL HISTORY: 1. Schizophrenia with multiple admissions to mental health unit, last one in August with suicidal ideation. 2. Hypertension. 3. Hyperlipidemia. MEDICATION LIST: 1. Acetaminophen 650 p.o. q.4 hours p.r.n. pain or fever. 2. Maalox Plus 30 mL p.o. q.4 hours p.r.n. indigestion. 3. Aspirin 81 mg p.o. daily. 4. Atorvastatin 20 mg p.o. at bedtime. 5. Clozapine 100 mg p.o. in the morning and 200 mg p.o. at bedtime. 6. Multivitamin 1 tablet p.o. daily. 7. Nicotine inhaler 10 mg inhaled q.2 hours p.r.n. cravings. 8. Propranolol LA 120 mg p.o. daily. 9. Risperdal 3 mg p.o. at bedtime. 10. Tamsulosin 0.4 mg p.o. daily. ALLERGIES: He had itching with GEODON. FAMILY HISTORY: Cousin has bipolar disorder. SOCIAL HISTORY: He smoked marijuana and used some cocaine when he was younger. Denies any alcohol or illicit drug use. Surrogate decision maker is his father , Haresh Bliss. Phone number is [phone]. REVIEW OF SYSTEMS: A 14-point review of systems was performed and all the pertinent negative and positive findings are in the HPI. PHYSICAL EXAMINATION GENERAL: The patient is a pleasant middle-aged male, lying in the ER stretcher , in no acute distress. VITAL SIGNS: Temperature 98.5, heart rate is 75, respiratory rate is 18, oxygen saturation is 97% on room air, blood pressure is 123/79. HEENT: Pupils are equal. Dry mucous membranes. CVS: Normal S1 and S2. Regular rate and rhythm. CHEST: Breath sounds present bilaterally with no added sounds. ABDOMEN: Soft, obese, nontender, nondistended. Bowel sounds are present and increased. EXTREMITIES: No edema. NEURO: He is alert, awake, and oriented x3. Able to move all 4 extremities. LABORATORY AND IMAGING DATA: The patient had a CBC that showed a WBC of 9.3, hemoglobin of 15.7, hematocrit of 45, platelet count of 256 with 71% neutrophils. INR was 1. Chemistry showed a sodium of 136, potassium of 3.3, chloride of 101, bicarb of 18, anion gap of 17, BUN of 17, creatinine of 1.29, glucose of 107, lactic acid of 0.9. LFTs are normal except for a slight elevation of total bilirubin at 1.3. CRP was 12.39 and troponin was 0. Urinalysis showed 1+ protein, 2+ ketones. CT of the brain showed no evidence for traumatic brain injury. Cervical spine CT showed degenerative osteoarthritis, but no acute osseous injury of the cervical spine. Chest x-ray, no active cardiopulmonary disease and CT of the abdomen and pelvis showed a scattered diverticula of the colon without pericolonic inflammatory change. No acute CT pathology of the visualized abdomen or pelvis. ASSESSMENT AND PLAN: Mr. Bliss is a 51-year-old male with a past medical history of schizophrenia, hypertension, hyperlipidemia who presents to the emergency room with complaints of diarrhea. 1. Gastroenteritis. I suspect this is likely viral and could be associated with the fast food he ate over the weekend. The patient will be admitted as an observation to the medical floor. For now, I am going to provide supportive care with IV hydration. I do not believe antibiotics are indicated at this point. The patient states he is hungry at this time and I am going to start him on a transitional diet and see if he can tolerate it. The stool for occult blood was negative for blood at this point, so I do not suspect a GI bleed. 2. Dehydration. The patient's hemoglobin of 15.7 suggest hemoconcentration. His creatinine is elevated at 1.29. He is going to receive IV hydration. We are going to continue to monitor his renal function. 3. Hyperkalemia. We replete. 4. Hypertension. We will continue his propranolol with holding parameters. 5. Schizophrenia. The patient denies any suicidal or homicidal ideations at this time, but states that he continues to have auditory hallucinations. Despite that, he appears to be compensated at this time. I am going to continue his regimen of Risperdal and clozapine. 6. DVT prophylaxis. The patient has a score of 2 on the DVT Prophylaxis Risk Assessment Guide and he is going to have SCDs to bilateral lower extremities. 7. Code status is full. TIME SPENT: Approximately 50 minutes were spent with the patient interview, medical records review, physical examination to complete this admission, more than half of this time was spent btwn-go-aesy with the patient in coordination of care. CC: Dr. Panda* [id number]/[facility] #: [id number] YOHAN
[2016-11-23] MEDS: NS 0.9% w/ 40 Meq KCL 1000 ML* 1,000 ML IV SCH ×3 (03:05→20:47)
[2016-11-23 05:43] LABS: Hematocrit 37 % (42-52); Hemoglobin 12.7 g/dl (14.0-18.0); Mean Corpuscular HGB Conc 35 g/dl (31-36); Mean Corpuscular Hemoglobin 31 pg (27-31); Mean Corpuscular Volume 88 fL (80-94); Mean Platelet Volume 9 um3 (7.4-10.4); Red Blood Count 4.15 10^6/ul (4.0-5.4); Red Cell Distribution Width 14 % (10.5-15); White Blood Count 6.2 10^3/ul (3.5-10.8)
[2016-11-23 06:01] LABS: BUN/Creatinine Ratio 10.9 (8-20); Calcium 8.2 mg/dL (8.6-10.3); EGFR Non-African American 87.1 (>60); Potassium 3.5 mmol/L (3.5-5.0)
[2016-11-23] MEDS ORDERED: Pantoprazole IV* 40 MG IV SCH (09:00)
[2016-11-23] MEDS ORDERED: Propranolol LA CAP* 120 MG PO SCH (09:00)
[2016-11-23] MEDS ORDERED: NS 0.9% 1000 ML* 1,000 ML IV ONE (09:06)
[2016-11-23] MEDS: Multivitamins/Minerals TAB PO SCH (10:25)
[2016-11-23] MEDS: metroNIDAZOLE TAB* 250 MG PO SCH ×3 (10:25→20:48)
[2016-11-23] MEDS: CloZAPine TAB* 100 MG TAB PO SCH ×2 (10:26→20:48)
[2016-11-23] MEDS: Tamsulosin CAP* 0.4 MG PO SCH (10:26)
[2016-11-23] MEDS: Aspirin EC Low Dose* 81 MG TAB.EC PO SCH (10:26)
--- NOTE | 2016-11-23 10:42 | PN ---
Subjective Date of Service: 11/23/16 Interval History: HOSPITALIST PROGRESS NOTE Patient seen and examined at bedside. He feels a little better today, but still had 6 episodes of liquid diarrhea overnight. Appetite has improved and he wants more food. Family History: Unchanged from Admission Social History: Unchanged from Admission Past Medical History: Unchanged from Admission Objective Active Medications: Acetaminophen (Tylenol Tab*) 650 mg PO Q6H PRN PRN Reason: pain/fever Al Hydrox/Mg Hydrox/Simethicone (Maalox Plus*) 30 ml PO Q4H PRN PRN Reason: INDIGESTION Aspirin (Aspirin Ec Low Dose*) 81 mg PO DAILY [facility] Last Admin: 11/23/16 10:26 Dose: 81 mg Atorvastatin Calcium (Lipitor*) 20 mg PO BEDTIME [facility] Last Admin: 11/22/16 20:06 Dose: 20 mg Clozapine (Clozapine Tab*) 200 mg PO BEDTIME [facility] Last Admin: 11/22/16 20:10 Dose: 200 mg Clozapine (Clozapine Tab*) 100 mg PO QAM [facility] Last Admin: 11/23/16 10:26 Dose: 100 mg Potassium Chloride/Sodium Chloride (Ns 0.9% W/ 40 Meq Kcl 1000 Ml*) 1,000 mls @ 125 mls/hr IV PER RATE [facility] Last Admin: 11/23/16 03:05 Dose: 125 mls/hr Metronidazole (Flagyl Tab*) 500 mg PO TID [facility] Last Admin: 11/23/16 10:25 Dose: 500 mg Multivitamins/Minerals (Theragran/Minerals Tab*) 1 tab PO DAILY [facility] Last Admin: 11/23/16 10:25 Dose: 1 tab Nicotine (Nicotine Inhaler*) 10 mg INH Q2H PRN PRN Reason: CRAVING Ondansetron HCl (Zofran Inj*) 4 mg IV Q6H PRN PRN Reason: NAUSEA Pantoprazole Sodium (Protonix Iv*) 40 mg IV DAILY [facility] Last Admin: 11/23/16 10:27 Dose: 40 mg Propranolol HCl (Inderal La Cap*) 120 mg PO DAILY [facility] Last Admin: 11/23/16 08:26 Dose: Not Given Tamsulosin HCl (Flomax Cap*) 0.4 mg PO DAILY [facility] Last Admin: 11/23/16 10:26 Dose: 0.4 mg Vital Signs 11/22/16 11/22/16 11/22/16 20:00 23:15 23:41 Temperature 97.4 F Pulse Rate 72 Respiratory 20 20 18 Rate Blood Pressure 97/43 (mmHg) O2 Sat by Pulse 98 Oximetry 11/23/16 07:54 Temperature 97.5 F Pulse Rate 65 Respiratory 18 Rate Blood Pressure 77/58 (mmHg) O2 Sat by Pulse 96 Oximetry Oxygen Devices in Use Now: None Appearance: Pleasant middle aged male lying in bed in NAD. Eyes: No Scleral Icterus Ears/Nose/Mouth/Throat: Mucous Membranes Moist Neck: Trachea Midline Respiratory: Symmetrical Chest Expansion and Respiratory Effort, Clear to Auscultation Cardiovascular: NL Sounds; No Murmurs; No JVD, RRR Abdominal: - - Soft, mild diffuse tenderness, NG, NR, BS+ and increased Extremities: No Edema Neurological: Alert and Oriented x 3, NL Muscle Strength and Tone Lines/Tubes/Other Access: Clean, Dry and Intact Peripheral IV Nutrition: Taking PO's Result Diagrams: 11/23/16 05:11 11/23/16 05:11 Assess/Plan/Problems-Billing Assessment: Mr. Bliss is a 51yo M with PMH of schizophrenia, HTN, HLD, who presented to ED with diarrhea and dehydration, found to have C. diff. - Patient Problems (1) C. difficile diarrhea Comment: - Patient denies taking any antibiotics recently but stool is positive for C. diff. His presentation with frequent diarrhea is compatible with community acquired C. diff. - Start Metronidazole. - ID consult. (2) Dehydration Comment: - BP is still on the lower side - will give IVF bolus and continue hydration. - Suspect drop in H/H is secondary to dilution. (3) Schizophrenia Comment: - Stable, no SI/HI. - Continue Risperdal and Clozapine. (4) DVT prophylaxis Comment: - Not ambulating much - start SQ heparin. (5) Full code status Status and Disposition: Change to inpatient.
--- NOTE | 2016-11-23 13:25 | CONS ---
CONSULTATION REPORT: DATE OF CONSULTATION: 11/23/16 REQUESTING PHYSICIAN: Dr. Quintero. CONSULTING SERVICE: Infectious Disease. REASON FOR CONSULTATION: Diarrhea. IMPRESSION: 1. Severe explosive frequent bowel movements for about the last 5 days, sudden onset of mild abdominal pain and chills. Did not have leukocytosis. Did not have preceding antibiotics, however, has C. Diff PCR positive from the stool and I think with the characteristics of his diarrhea, I will treat this as a true positive, even though there was not a preceding antibiotic exposure. Cultures and other infectious workup is pending and that may yet change our diagnosis. The brief time course makes inflammatory bowel disease seem less likely. 2. Schizophrenia. 3. Hypertension. RECOMMENDATIONS: I agree with Flagyl 500 mg by mouth every 8 hours. We will follow his symptoms here or expect a slow decrease in frequency of water explosive stools that may well take a few days. We will also follow up the stool cultures and fecal lactoferrin. If he is not making any improvement, then I would suggest having Gastroenterology see the patient for consideration of a flexible sigmoidoscopy. We will stop his PPI as there may be an increased risk of recurrence with PPI use. HISTORY OF PRESENT ILLNESS: This is a 51-year-old male with schizophrenia admitted about a month ago to mental health unit and now with severe diarrhea. He notes about 4 days ago, he had the onset of frequent bowel movements, initially 4 or 5 and then up to 15 a day when someone checked in on him and found him to be in decreased responsiveness and with copious stool present amongst his house. He notes minimal abdominal pain, maybe some slight discomfort, he had some chills, no fevers or rigors. He has not had diarrhea like this before. He has had no travel or contact with people he knew who had severe diarrhea. He ate at [employer] at the weekend, but no other exposures he can think of. On admission, his white blood cell count was 9000. He has been afebrile. His C. Diff study was sent, it was positive. He was started on Flagyl, which he has been on for about a little over 24 hours. He has a similar number of explosive frequent stools today and essentially needs to use the restroom frequently. PAST MEDICAL HISTORY: Schizophrenia, hypertension, hyperlipidemia. MEDICATIONS: 1. Flagyl 500 mg by mouth every 8 hours. 2. Tylenol. 3. Maalox. 4. Aspirin. 5. Clozapine. 6. Lipitor. 7. Heparin subcutaneous injection. 8. Multivitamin. 9. Propranolol. 10. Tamsulosin. 11. Pantoprazole 40 mg IV daily. ALLERGIES: To [place]. FAMILY HISTORY: He has a cousin with bipolar disorder. No recurrent infections. SOCIAL HISTORY: He uses marijuana, no alcohol or other illicit drugs. REVIEW OF SYSTEMS: A complete review of systems was obtained and all negative except as noted above. PHYSICAL EXAMINATION: Vital Signs: Temperature 36, heart rate 60, respirations 18, blood pressure 80/58, O2 sat 96% on room air. In general, he is awake, and not in distress. Neurologic: He is oriented x3. Follows all commands, answers all questions. HEENT: There is no conjunctival hemorrhage. Oropharynx is without lesions. Neck is supple, without nuchal rigidity. Lymph nodes, there are no cervical, supraclavicular, inguinal, axillary or epitrochlear lymphadenopathy. Heart has regular rate and rhythm without murmurs , rubs, or gallops. Lungs are clear to auscultation bilaterally. Abdomen: Soft, nontender, nondistended without rebound. Skin: There is no rash or splinter hemorrhages. Musculoskeletal: There is no spine tenderness to palpation or joint synovitis. DIAGNOSTIC STUDIES/LABORATORY DATA: White blood cell count 6, hemoglobin 12, platelets 184. Creatinine is 0.9, down from 1.3. CRP was 13. Lipase was undetected. Please see impressions and recommendations as outlined above, which I have discussed with Dr. Quintero. Thanks for asking me to see Mr. Bliss in consultation. [id number]/[facility] #: [id number] [facility]
[2016-11-23] MEDS: Heparin VIAL(*) 5000 UNITS/ML VIAL (FIVE THOUSAND) SUBCUT SCH ×2 (14:14→22:45)
[2016-11-23] MEDS: Atorvastatin* 20 MG TAB PO SCH (20:48)
[2016-11-24] MEDS: Heparin VIAL(*) 5000 UNITS/ML VIAL (FIVE THOUSAND) SUBCUT SCH ×3 (04:35→20:02)
[2016-11-24] MEDS: NS 0.9% w/ 40 Meq KCL 1000 ML* 1,000 ML IV SCH ×2 (04:35→15:41)
[2016-11-24 05:43] LABS: Hematocrit 36 % (42-52); Hemoglobin 12.5 g/dl (14.0-18.0); Mean Corpuscular HGB Conc 34 g/dl (31-36); Mean Corpuscular Hemoglobin 30 pg (27-31); Mean Corpuscular Volume 88 fL (80-94); Mean Platelet Volume 9 um3 (7.4-10.4); Red Blood Count 4.11 10^6/ul (4.0-5.4); Red Cell Distribution Width 14 % (10.5-15); White Blood Count 5.5 10^3/ul (3.5-10.8)
[2016-11-24 05:55] LABS: BUN/Creatinine Ratio 6.3 (8-20); Calcium 8.3 mg/dL (8.6-10.3); EGFR African American 107.9 (>60); EGFR Non-African American 83.9 (>60); Potassium 3.7 mmol/L (3.5-5.0)
--- NOTE | 2016-11-24 09:01 | PN ---
Subjective Date of Service: 11/24/16 Interval History: HOSPITALIST PROGRESS NOTE Patient seen and examined at bedside. He feels a little better today. Still has diarrhea, but not as frequent as yesterday. Tolerating diet well, no N/V. Family History: Unchanged from Admission Social History: Unchanged from Admission Past Medical History: Unchanged from Admission Objective Active Medications: Acetaminophen (Tylenol Tab*) 650 mg PO Q6H PRN PRN Reason: pain/fever Al Hydrox/Mg Hydrox/Simethicone (Maalox Plus*) 30 ml PO Q4H PRN PRN Reason: INDIGESTION Aspirin (Aspirin Ec Low Dose*) 81 mg PO DAILY [facility] Last Admin: 11/23/16 10:26 Dose: 81 mg Atorvastatin Calcium (Lipitor*) 20 mg PO BEDTIME [facility] Last Admin: 11/23/16 20:48 Dose: 20 mg Clozapine (Clozapine Tab*) 200 mg PO BEDTIME [facility] Last Admin: 11/23/16 20:48 Dose: 200 mg Clozapine (Clozapine Tab*) 100 mg PO QAM [facility] Last Admin: 11/23/16 10:26 Dose: 100 mg Heparin Sodium (Porcine) (Heparin Vial(*)) 5,000 units SUBCUT Q8HR [facility] Last Admin: 11/24/16 04:35 Dose: 5,000 units Potassium Chloride/Sodium Chloride (Ns 0.9% W/ 40 Meq Kcl 1000 Ml*) 1,000 mls @ 75 mls/hr IV PER RATE [facility] Metronidazole (Flagyl Tab*) 500 mg PO TID [facility] Last Admin: 11/23/16 20:48 Dose: 500 mg Multivitamins/Minerals (Theragran/Minerals Tab*) 1 tab PO DAILY [facility] Last Admin: 11/23/16 10:25 Dose: 1 tab Nicotine (Nicotine Inhaler*) 10 mg INH Q2H PRN PRN Reason: CRAVING Ondansetron HCl (Zofran Inj*) 4 mg IV Q6H PRN PRN Reason: NAUSEA Propranolol HCl (Inderal La Cap*) 120 mg PO DAILY [facility] Tamsulosin HCl (Flomax Cap*) 0.4 mg PO DAILY [facility] Last Admin: 11/23/16 10:26 Dose: 0.4 mg Vital Signs 11/24/16 07:19 Temperature 97.6 F Pulse Rate 74 Respiratory 16 Rate Blood Pressure 124/80 (mmHg) O2 Sat by Pulse 98 Oximetry Oxygen Devices in Use Now: None Appearance: Pleasant middle aged male lying in bed in NAD. Eyes: No Scleral Icterus Ears/Nose/Mouth/Throat: Mucous Membranes Moist Neck: Trachea Midline Respiratory: Symmetrical Chest Expansion and Respiratory Effort, Clear to Auscultation Cardiovascular: RRR - Normal S1 and S2 Abdominal: NL Sounds; No Tenderness; No Distention Extremities: No Edema Neurological: Alert and Oriented x 3, NL Muscle Strength and Tone Lines/Tubes/Other Access: Clean, Dry and Intact Peripheral IV Nutrition: Taking PO's Result Diagrams: 11/24/16 05:23 11/24/16 05:23 Assess/Plan/Problems-Billing Assessment: Mr. Bliss is a 51yo M with PMH of schizophrenia, HTN, HLD, who presented to ED with diarrhea and dehydration, found to have C. diff. - Patient Problems (1) C. difficile diarrhea Comment: - Patient denies taking any antibiotics recently but stool is positive for C. diff. His presentation with frequent diarrhea is compatible with community acquired C. diff. - Continue Metronidazole. - ID consult appreciated. (2) Dehydration Comment: - BP is trending up - will continue IVF at a lower rate. (3) Schizophrenia Comment: - Stable, no SI/HI. - Continue Risperdal and Clozapine. (4) DVT prophylaxis Comment: - Not ambulating much - SQ heparin. (5) Full code status Status and Disposition: Inpatient.
--- NOTE | 2016-11-24 10:11 | PN ---
Progress Note - Progress Note SOAP: Subjective: DOS: 11/24/16 CC: diarrhea HPI: 51 yo man with a few days of explosive frequent diarrhea, no recent antibiotics, Cdif PCR positive, today has had 3-4 soft stools, no liquid BM since yesterday. Abd pain resolved as are chills. Appetite is decreased. Objective: [] Vital Signs Temp 36.4 C 11/24/16 07:19 Pulse 74 11/24/16 07:19 Resp 16 11/24/16 07:19 BP 124/80 11/24/16 07:19 Pulse Ox 98 11/24/16 07:19 Intake & Output 11/23/16 11/24/16 11/24/16 18:59 06:59 18:59 Intake Total 2650 2978 240 Output Total 200 Balance 2650 2778 240 Intake: IV Fluids 1980 1600 NS (0.9%) 40 meq KCL 700 IVPB 498 NS (0.9%) 40 meq KCL 498 Oral 670 880 240 Output: Liquid Stool 200 Other: Estimated Void Medium # Bowel Movements 3 Estimated Stool Amount Medium # Voids 6 Gen:AAOx3 HEENT:PERRL, MMM Neck: supple Heart:RRR no murmur Lungs:CTA BL Abd:+BS NTND soft Skin: no rash MSK: no spine tenderness Sodium 139 mmol/L (133-145) 11/24/16 05:23 Potassium 3.7 mmol/L (3.5-5.0) 11/24/16 05:23 BUN 6 mg/dL (6-24) 11/24/16 05:23 Creatinine 0.95 mg/dL (0.67-1.17) 11/24/16 05:23 Calcium 8.3 mg/dL (8.6-10.3) L 11/24/16 05:23 Magnesium 2.0 mg/dL (1.9-2.7) 11/22/16 13:46 AST 19 U/L (13-39) 11/22/16 13:46 ALT 13 U/L (7-52) 11/22/16 13:46 Assessment: 1. Cdif diarrhea, improving 2. abd pain, resolved 3. anorexia ?due to infection vs antibiotic Plan: 1. continue flagyl 500 mg po tid day 10/11. 2. bland diet 3. SW consult ?help w home cleaning given explosive diarrhea for a few days there
[2016-11-24] MEDS: Propranolol LA CAP* 120 MG PO SCH (10:24)
[2016-11-24] MEDS: Multivitamins/Minerals TAB PO SCH (10:24)
[2016-11-24] MEDS: Tamsulosin CAP* 0.4 MG PO SCH (10:24)
[2016-11-24] MEDS: metroNIDAZOLE TAB* 250 MG PO SCH ×3 (10:24→20:03)
[2016-11-24] MEDS: Aspirin EC Low Dose* 81 MG TAB.EC PO SCH (10:26)
[2016-11-24] MEDS: CloZAPine TAB* 100 MG TAB PO SCH ×2 (10:26→20:03)
[2016-11-24] MEDS: Atorvastatin* 20 MG TAB PO SCH (20:03)
[2016-11-25] MEDS: NS 0.9% w/ 40 Meq KCL 1000 ML* 1,000 ML IV SCH (04:44)
[2016-11-25] MEDS: Heparin VIAL(*) 5000 UNITS/ML VIAL (FIVE THOUSAND) SUBCUT SCH (05:40)
[2016-11-25 07:33] VITALS: BP 130/80
[2016-11-25] MEDS: Aspirin EC Low Dose* 81 MG TAB.EC PO SCH (08:12)
[2016-11-25] MEDS: CloZAPine TAB* 100 MG TAB PO SCH (08:12)
[2016-11-25] MEDS: Multivitamins/Minerals TAB PO SCH (08:12)
[2016-11-25] MEDS: Propranolol LA CAP* 120 MG PO SCH (08:12)
[2016-11-25] MEDS: metroNIDAZOLE TAB* 250 MG PO SCH ×2 (08:13→12:56)
[2016-11-25] MEDS: Tamsulosin CAP* 0.4 MG PO SCH (08:13)
--- NOTE | 2016-11-25 12:30 | PN ---
Progress Note - Progress Note Note: Patient recovered, at his baseline. I spoke with [employer] who spoke with his outpatient [employer]. They will arrange transport home. Note he has appt with Dr. Panda .
--- NOTE | 2016-11-25 12:40 | DCNOTE ---
Subjective Date of Service: 11/25/16 Interval History: Mild nausea, no BM yet today. Ate some, no emesis. Family History: Unchanged from Admission Social History: Unchanged from Admission Past Medical History: Unchanged from Admission Objective Active Medications: Acetaminophen (Tylenol Tab*) 650 mg PO Q6H PRN PRN Reason: pain/fever Al Hydrox/Mg Hydrox/Simethicone (Maalox Plus*) 30 ml PO Q4H PRN PRN Reason: INDIGESTION Aspirin (Aspirin Ec Low Dose*) 81 mg PO DAILY [facility] Last Admin: 11/25/16 08:12 Dose: 81 mg Atorvastatin Calcium (Lipitor*) 20 mg PO BEDTIME [facility] Last Admin: 11/24/16 20:03 Dose: 20 mg Clozapine (Clozapine Tab*) 200 mg PO BEDTIME [facility] Last Admin: 11/24/16 20:03 Dose: 200 mg Clozapine (Clozapine Tab*) 100 mg PO QAM [facility] Last Admin: 11/25/16 08:12 Dose: 100 mg Heparin Sodium (Porcine) (Heparin Vial(*)) 5,000 units SUBCUT Q8HR [facility] Last Admin: 11/25/16 05:40 Dose: 5,000 units Potassium Chloride/Sodium Chloride (Ns 0.9% W/ 40 Meq Kcl 1000 Ml*) 1,000 mls @ 75 mls/hr IV PER RATE [facility] Last Admin: 11/25/16 04:44 Dose: 75 mls/hr Metronidazole (Flagyl Tab*) 500 mg PO TID [facility] Last Admin: 11/25/16 08:13 Dose: 500 mg Multivitamins/Minerals (Theragran/Minerals Tab*) 1 tab PO DAILY [facility] Last Admin: 11/25/16 08:12 Dose: 1 tab Nicotine (Nicotine Inhaler*) 10 mg INH Q2H PRN PRN Reason: CRAVING Ondansetron HCl (Zofran Inj*) 4 mg IV Q6H PRN PRN Reason: NAUSEA Propranolol HCl (Inderal La Cap*) 120 mg PO DAILY [facility] Last Admin: 11/25/16 08:12 Dose: 120 mg Tamsulosin HCl (Flomax Cap*) 0.4 mg PO DAILY [facility] Last Admin: 11/25/16 08:13 Dose: 0.4 mg Vital Signs 11/24/16 11/24/16 11/24/16 15:10 19:15 20:00 Temperature 98.2 F 98.0 F Pulse Rate 76 70 Respiratory 16 16 16 Rate Blood Pressure 119/76 125/79 (mmHg) O2 Sat by Pulse 97 100 Oximetry 11/24/16 11/25/16 11/25/16 23:23 07:32 08:00 Temperature 97.8 F Pulse Rate 70 Respiratory 16 17 Rate Blood Pressure 115/74 130/80 (mmHg) O2 Sat by Pulse 99 Oximetry Oxygen Devices in Use Now: None Appearance: Alert, on hi sside in bed. Neutral affect. Looks comfortable. Eyes: No Scleral Icterus Ears/Nose/Mouth/Throat: Clear Oropharnyx, Mucous Membranes Moist Neck: NL Appearance and Movements; NL JVP, No Thyroid Enlargement, Masses Respiratory: Symmetrical Chest Expansion and Respiratory Effort, Clear to Auscultation, Clear to Percussion Cardiovascular: NL Sounds; No Murmurs; No JVD, RRR, No Edema, - Abdominal: NL Sounds; No Tenderness; No Distention, No Hepatosplenomegaly, - Extremities: No Edema, No Clubbing, Cyanosis, - Skin: No Rash or Ulcers, No Nodules or Sclerosis, - Neurological: Alert and Oriented x 3, NL Sensation Result Diagrams: 11/24/16 05:23 11/24/16 05:23 Additional Lab and Data: Lab Results 11/22/16 11/22/16 11/22/16 Range/Units 13:46 13:46 13:46 WBC 9.3 (3.5-10.8) 10^3/ul RBC 5.15 (4.0-5.4) 10^6/ul Hgb 15.7 (14.0-18.0) g/dl Hct 45 (42-52) % MCV 88 (80-94) fL MCH 30 (27-31) pg MCHC 35 (31-36) g/dl RDW 14 (10.5-15) % Plt Count 256 (150-450) 10^3/ul MPV 9 (7.4-10.4) um3 Neut % (Auto) 71.3 (38-83) % Lymph % (Auto) 15.4 L (25-47) % Graham % (Auto) 7.9 (1-9) % Eos % (Auto) 4.6 (0-6) % Baso % (Auto) 0.8 (0-2) % Absolute Neuts (auto) 6.7 (1.5-7.7) 10^3/ul Absolute Lymphs (auto) 1.4 (1.0-4.8) 10^3/ul Absolute Monos (auto) 0.7 (0-0.8) 10^3/ul Absolute Eos (auto) 0.4 (0-0.6) 10^3/ul Absolute Basos (auto) 0.1 (0-0.2) 10^3/ul Absolute Nucleated RBC 0 10^3/ul Nucleated RBC % 0 INR (Anticoag Therapy) 1.07 (0.89-1.11) APTT 31.2 (26.0-36.3) seconds Sodium 136 (133-145) mmol/L Potassium 3.3 L (3.5-5.0) mmol/L Chloride 101 (101-111) mmol/L Carbon Dioxide 18 L (22-32) mmol/L Anion Gap 17 H (2-11) mmol/L BUN 17 (6-24) mg/dL Creatinine 1.29 H (0.67-1.17) mg/dL Est GFR ( Amer) 75.8 (>60) Est GFR (Non-Af Amer) 59.0 (>60) BUN/Creatinine Ratio 13.2 (8-20) Glucose 107 H (70-100) mg/dL Lactic Acid (0.5-2.0) mmol/L Calcium 10.0 (8.6-10.3) mg/dL Magnesium 2.0 (1.9-2.7) mg/dL Total Bilirubin 1.30 H (0.2-1.0) mg/dL AST 19 (13-39) U/L ALT 13 (7-52) U/L Alkaline Phosphatase 103 (34-104) U/L Total Creatine Kinase 99 (10-223) U/L CK-MB (CK-2) 2.0 (0.6-6.3) ng/mL Troponin I 0.00 (<0.04) ng/mL C-Reactive Protein 12.39 H (< 5.00) mg/L Total Protein 7.3 (6.4-8.9) g/dL Albumin 4.7 (3.2-5.2) g/dL Globulin 2.6 (2-4) g/dL Albumin/Globulin Ratio 1.8 (1-3) Lipase < 10 L (11.0-82.0) U/L Urine Color Urine Appearance Urine pH (5-9) Ur Specific [place] (1.010-1.030) Urine Protein (Negative) Urine Ketones (Negative) Urine Blood (Negative) Urine Nitrate (Negative) Urine Bilirubin (Negative) Urine Urobilinogen (Negative) Ur Leukocyte Esterase (Negative) Urine WBC (Auto) (Absent) Urine RBC (Auto) (Absent) Ur Squamous Epith Cells (Absent) Urine Bacteria (Absent) Hyaline Casts (Absent) Urine Glucose (Negative) Blood Type Antibody Screen 11/22/16 11/22/16 11/22/16 Range/Units 13:46 13:46 14:06 WBC (3.5-10.8) 10^3/ul RBC (4.0-5.4) 10^6/ul Hgb (14.0-18.0) g/dl Hct (42-52) % MCV (80-94) fL MCH (27-31) pg MCHC (31-36) g/dl RDW (10.5-15) % Plt Count (150-450) 10^3/ul MPV (7.4-10.4) um3 Neut % (Auto) (38-83) % Lymph % (Auto) (25-47) % Graham % (Auto) (1-9) % Eos % (Auto) (0-6) % Baso % (Auto) (0-2) % Absolute Neuts (auto) (1.5-7.7) 10^3/ul Absolute Lymphs (auto) (1.0-4.8) 10^3/ul Absolute Monos (auto) (0-0.8) 10^3/ul Absolute Eos (auto) (0-0.6) 10^3/ul Absolute Basos (auto) (0-0.2) 10^3/ul Absolute Nucleated RBC 10^3/ul Nucleated RBC % INR (Anticoag Therapy) (0.89-1.11) APTT (26.0-36.3) seconds Sodium (133-145) mmol/L Potassium (3.5-5.0) mmol/L Chloride (101-111) mmol/L Carbon Dioxide (22-32) mmol/L Anion Gap (2-11) mmol/L BUN (6-24) mg/dL Creatinine (0.67-1.17) mg/dL Est GFR ( Amer) (>60) Est GFR (Non-Af Amer) (>60) BUN/Creatinine Ratio (8-20) Glucose (70-100) mg/dL Lactic Acid 0.9 (0.5-2.0) mmol/L Calcium (8.6-10.3) mg/dL Magnesium (1.9-2.7) mg/dL Total Bilirubin (0.2-1.0) mg/dL AST (13-39) U/L ALT (7-52) U/L Alkaline Phosphatase (34-104) U/L Total Creatine Kinase (10-223) U/L CK-MB (CK-2) (0.6-6.3) ng/mL Troponin I (<0.04) ng/mL C-Reactive Protein (< 5.00) mg/L Total Protein (6.4-8.9) g/dL Albumin (3.2-5.2) g/dL Globulin (2-4) g/dL Albumin/Globulin Ratio (1-3) Lipase (11.0-82.0) U/L Urine Color Yellow Urine Appearance Clear Urine pH 6.0 (5-9) Ur Specific [place] 1.026 (1.010-1.030) Urine Protein 1+(30 mg/dl) H (Negative) Urine Ketones 2+ H (Negative) Urine Blood Negative (Negative) Urine Nitrate Negative (Negative) Urine Bilirubin 1+ (Negative) Urine Urobilinogen Negative (Negative) Ur Leukocyte Esterase Negative (Negative) Urine WBC (Auto) Trace(0-5/hpf) (Absent) Urine RBC (Auto) Trace(0-2/hpf) (Absent) Ur Squamous Epith Cells Present H (Absent) Urine Bacteria Absent (Absent) Hyaline Casts Present H (Absent) Urine Glucose Negative (Negative) Blood Type O Positive Antibody Screen Negative Microbiology and Other Data: Microbiology 11/22/16 18:45 Stool Gross Appearance - Final Stool Shiga Toxin I & II - Final Negative Shiga Toxin 1 & 2 Cryptosporidium/Giardia - Final Neg Cryptosporidium/Giardia 11/22/16 18:45 Stool Gross Appearance - Final Stool C. difficile DNA Amplification - Final 027 Presumptive NEGATIVE Toxigenic C.diff POSITIVE 11/22/16 18:45 Stool Gross Appearance - Final Stool Stool Lactoferrin - Final Assess/Plan/Problems-Billing Assessment: Mr. Bliss is a 51yo M with PMH of schizophrenia, HTN, HLD, who presented to ED with diarrhea and dehydration, found to have C. diff. - Patient Problems (1) C. difficile diarrhea Current Visit: Yes Status: Acute Code(s): A04.7 - ENTEROCOLITIS DUE TO CLOSTRIDIUM DIFFICILE SNOMED Code(s): 900740022 Comment: - Patient denies taking any antibiotics recently but stool is positive for C. diff. His presentation with frequent diarrhea is compatible with community acquired C. diff. - Continue Metronidazole 10 mor days as outpt, will get 2 doses DOD. (2) Schizophrenia Current Visit: Yes Status: Acute Code(s): F20.9 - SCHIZOPHRENIA, UNSPECIFIED SNOMED Code(s): 78279257 Comment: - Stable, no SI/HI. - Continue Risperdal and Clozapine. Status and Disposition: Inpatient.
--- NOTE | 2016-11-25 12:43 | PN ---
Progress Note - Progress Note Note: Time spent on discharge 45 minutes.
--- NOTE | 2016-11-26 01:29 | DS ---
CC: Dr. Panda DISCHARGE SUMMARY: DATE OF ADMISSION: DATE OF DISCHARGE: 11/25/16 HISTORY: This 51-year-old man was admitted with gastroenteritis. He had nausea , vomiting, and diarrhea. The history is detailed in the admission note. LABORATORY DATA: Fairly unremarkable. Stool was tested for shiga toxin, cryptosporidium, and Giardia and was negative for those pathogens. He required quite well with supportive care. He received some intravenous fluids. FINAL DIAGNOSES: 1. C. Difficile diarrhea 2. Psychiatric disorder. 3. Hyperlipidemia. DISCHARGE MEDICATIONS: 1. Nicotine inhaler every 2 hours p.r.n. 2. Acetaminophen 650 mg every 4 hours p.r.n. 3. Maalox Plus 30 mL every 4 hours p.r.n. 4. Aspirin 81 mg daily. 5. Atorvastatin 20 mg h.s. 6. Clozapine 100 mg every morning. 7. Multivitamin with minerals daily. 8. Propranolol LA 120 mg daily. 9. Tamsulosin 0.4 mg daily. 10. Risperidone 3 mg h.s. 11. Clozapine 200 h.s. 12. Metronidazole 500 mg tid x 10 days [id number]/[facility] #: [id number] [facility]
== END 2016-11-25 13:30 | disposition home or self-care (01) | DRG 373 ==
LOC: ED 12:22 → MED 16:50 → OBSVTOIN 11-23 10:51
PROVIDERS: ADMIT Internal Medicine; ATTEND Internal Medicine
DX: A04.7 Enterocolitis due to Clostridium difficile (principal); E87.5 Hyperkalemia; E78.5 Hyperlipidemia, unspecified; Z79.82 Long term (current) use of aspirin; Z86.010 Personal history of colon polyps; Z88.8 Allergy status to other drugs, medicaments and biological substances; F32.9 Major depressive disorder, single episode, unspecified; F41.9 Anxiety disorder, unspecified; Z81.8 Family history of other mental and behavioral disorders; Z87.891 Personal history of nicotine dependence; F20.9 Schizophrenia, unspecified; K59.09 Other constipation; E86.0 Dehydration
CPT/HCPCS: 36415; 70450; 71010; 72125; 74177; 80048; 80053; 81003; 81015; 82272; 82550; 82553; 83605; 83630; 83690; 83735; 84484; 85025; 85610; 85730; 86140; 86850; 86900; 86901; 87045; 87046; 87328; 87329; 87493; 87899; 93005; A9270-GY; G0378; J1644; J3480; Q9967

== ENCOUNTER 2016-12-08 18:23 | Emergency (ER) | payer MEDICARE, MEDICAID ==
--- NOTE | 2016-12-08 19:37 | ED ---
maria teresa Julien Timothy, scribed for Konstantin Owens MD on 12/08/16 at 1915 . Neurological HPI - HPI Summary HPI Summary: Haresh Bliss is a 51 yo male presenting to [facility] with intermittent dizziness and lightheadedness for the past few weeks. He was sent from his PCP' s office today for reported hypotension. he is not in any current pain. His MHx includes HLD, HTN, RLS, NIDDM, schizophrenia, depression, anxiety, paranoia, tobacco use. His PCP is Dr. Panda. - History of Current Complaint Chief Complaint: EDDizziness Stated Complaint: DIZZINESS Time Seen by Provider: 12/08/16 19:10 Hx Obtained From: Patient Onset/Duration: Gradual Onset, Started weeks ago Timing: Intermittent Episodes Lasting: Onset Severity: Moderate Current Severity: Moderate Pain Intensity: 0 Pain Scale Used: 0-10 Numeric Character: Lightheaded Associated Signs and Symptoms: Positive: Dizziness, Lightheadness - Additional Pertinent History Primary Care Physician: ROSALIO - Allergy/Home Medications Allergies/Adverse Reactions: Allergies Allergy/AdvReac Type Severity Reaction Status Date / Time Ziprasidone [From Geodon] Allergy Itching Verified 09/15/16 11:17 PMH/Surg Hx/FS Hx/Imm Hx Endocrine/Hematology History: Reports: Hx Diabetes - NIDDM Cardiovascular History: Reports: Hx Hypercholesterolemia, Hx Hypertension History: Denies: Hx Renal Disease Sensory History: Denies: Hx Contacts or Glasses, Hx Hearing Aid Opthamlomology History: Denies: Hx Contacts or Glasses Neurological History: Reports: Other Neuro Impairments/Disorders - RLS per patient Psychiatric History: Reports: Hx Anxiety, Hx Depression, Hx Inpatient Treatment , Hx Community Mental Health Tx, Hx Schizophrenia, Other Psychiatric Issues/ Disorders - paranoia Denies: Hx Eating Disorder, Hx of Violent Episodes Against Others Infectious Disease History: No Infectious Disease History: Denies: Traveled Outside the [place] in Last 30 Days - Family History Known Family History: Positive: Other - Cousin with bipolar d/o Negative: Cardiac Disease, Hypertension, Diabetes - Social History Alcohol Use: None Hx Substance Use: No Substance Use Type: Reports: None Hx Tobacco Use: Yes Smoking Status (MU): Former Smoker Type: Cigarettes Have You Smoked in the Last Year: Yes - reports no tobacco from cigarrettes in last six months Review of Systems Constitutional: Negative Eyes: Negative ENT: Negative Cardiovascular: Other - hypotension - reported Respiratory: Negative Gastrointestinal: Negative Genitourinary: Negative Musculoskeletal: Negative Skin: Negative Neurological: Other - lightheadedness, dizziness Psychological: Normal All Other Systems Reviewed And Are Negative: Yes Physical Exam Triage Information Reviewed: Yes Vital Signs On Initial Exam: Initial Vitals Temp Pulse Resp BP Pulse Ox 98.9 F 79 21 123/83 100 12/08/16 18:24 12/08/16 18:24 12/08/16 18:24 12/08/16 18:24 12/08/16 18:24 Vital Signs Reviewed: Yes Appearance: Positive: Well-Appearing, No Pain Distress - anxious Skin: Positive: Warm Eyes: Positive: EOMI, YARON ENT: Positive: Hearing grossly normal Neck: Positive: Supple Respiratory/Lung Sounds: Positive: Clear to Auscultation, Breath Sounds Present Cardiovascular: Positive: RRR Abdomen Description: Positive: Nontender, Soft Bowel Sounds: Positive: Present Musculoskeletal: Positive: Strength/ROM Intact Neurological: Positive: Sensory/Motor Intact, Normal Gait Psychiatric: Positive: Affect/Mood Appropriate - [place]is Coma Scale Coma Scale Total: 15 Diagnostics - Vital Signs Vital Signs Temp Pulse Resp BP Pulse Ox 12/08/16 18:40 22 12/08/16 18:38 125/89 12/08/16 18:24 98.9 F 79 21 123/83 100 - Laboratory Result Diagrams: 12/08/16 19:47 12/08/16 19:47 Lab Statement: Any lab studies that have been ordered have been reviewed, and results considered in the medical decision making process. - EKG 1920 Cardiac Rate: NL - 77 BPM EKG Interpretation: NSR @ 77 BPM, PVC's Course/Dx - Course Assessment/Plan: Haresh Bliss is a 51 yo male presenting to [facility] with lightheadedness and hypotension, recommended to present to [facility] by his PCP Dr. Panda. In the ED his BP is 122/83. He was administered Klor-Con liquid. His EKG displayed NSR with PVC's. After clinical examination and review of his EKG and lab studies, he will be discharged home with dizziness and hypokalemia with appropriate instructions. - Differential Dx Differential Diagnoses Neuro: Positive: Other - dizziness, hypokalemia - Diagnoses Provider Diagnoses: Dizziness, Hypokalemia Discharge - Discharge Plan Condition: Stable Disposition: HOME Patient Education Materials: Dizziness (ED), Hypokalemia (ED) Referrals: Irwin Panda MD [Primary Care Provider] - 2 Days Additional Instructions: Please follow up with your primary care physician regarding your visit to the emergency department today. Return to the emergency department with any new or recurring symptoms. The documentation as recorded by the maria teresa bryant Timothy accurately reflects the service I personally performed and the decisions made by me, Konstantin Owens MD.
[2016-12-08 20:03] LABS: Hematocrit 39 % (42-52); Hemoglobin 13.4 g/dl (14.0-18.0); Mean Corpuscular HGB Conc 34 g/dl (31-36); Mean Corpuscular Hemoglobin 30 pg (27-31); Mean Corpuscular Volume 87 fL (80-94); Mean Platelet Volume 8 um3 (7.4-10.4); Red Cell Distribution Width 14 % (10.5-15); White Blood Count 7.6 10^3/ul (3.5-10.8)
[2016-12-08 20:17] LABS: Albumin 3.7 g/dL (3.2-5.2); BUN/Creatinine Ratio 7.9 (8-20); Calcium 9.1 mg/dL (8.6-10.3); EGFR African American 100.6 (>60); EGFR Non-African American 78.2 (>60); Globulin 2.3 g/dL (2-4); Potassium 2.8 mmol/L (3.5-5.0); Total Bilirubin 0.9 mg/dL (0.2-1.0)
[2016-12-08] MEDS ORDERED: Potassium Chloride LIQUID* 20 MEQ PACKET PO ONE ×2 (20:26→22:01)
[2016-12-08 22:31] VITALS: BP 104/71
== END 2016-12-08 22:31 | disposition home or self-care (01) ==
LOC: ED 18:23
DX: R42 Dizziness and giddiness (principal); E87.6 Hypokalemia; Z87.891 Personal history of nicotine dependence
CPT/HCPCS: 36415; 80053; 85025; 93005; 99283; A9270-GY